=== PATIENT | female | born 1985 | race Caucasian/White ===

== ENCOUNTER 2018-12-06 19:30 | Emergency (ER) | payer OTHER, SELFPAY ==
[2018-12-06] MEDS ORDERED: NA CHLORIDE 0.9% 2,000 ML ONE (20:51)
[2018-12-06] MEDS ORDERED: NA CHLORIDE 0.9% 100 ML IV ONE (20:51)
[2018-12-06] MEDS ORDERED: AMPICILLIN/SULBACT 1.5GM VIAL ONE (20:51)
[2018-12-06 21:16] LABS: Absolute Monocytes 1.1 K/uL (0.1-1.3); Absolute Neutrophil 11.7 K/uL (1.8-8.0); Basophils % 0.2 % (0-1.3); Eosinophils % 2.5 % (0-4.4); Hematocrit 41.7 % (36.0-45.0); Lymphocytes % 7.2 % (15.3-44.8); MPV 8.2 fL (7.6-11.3); Monocytes % 7.6 % (3.3-12.3)
[2018-12-06 21:29] LABS: ALT/SGPT 17 U/L (12-78); AST/SGOT 19 U/L (15-37); Albumin 3.4 g/dL (3.4-5.0); Alkaline Phosphatase 95 U/L (45-117); BUN Blood Urea Nitrogen 12 mg/dL (7-18); Bicarbonate 23 mmol/L (21-32); Bilirubin Direct < 0.1 mg/dL (0-0.2); Bilirubin Total 0.3 mg/dL (0.2-1.0); Glucose Level 100 mg/dL (74-106); Potassium 3.8 mmol/L (3.5-5.1); Sodium Level 138 mmol/L (136-145)
[2018-12-06] MEDS ORDERED: MORPHINE 4 MG/ML SYR ONE ×2 (21:36→22:56)
--- NOTE | 2018-12-06 22:05 | RAD REPORT ---
EXAM DESCRIPTION: RAD - Chest Single View - 12/06/2018 9:27 pm CLINICAL HISTORY: dental abscess with trismus Chest pain. COMPARISON: No comparisons FINDINGS: Portable technique limits examination quality. The lungs are grossly clear. The heart is normal in size. No displaced fractures. IMPRESSION: No acute intrathoracic process suspected.
[2018-12-06] MEDS ORDERED: NA CHLORIDE 0.9% 1,000 ML ONE (22:56)
--- NOTE | 2018-12-06 23:24 | EDPHYS ---
Physician Documentation [facility] Name: Doris Langley Age: 33 yrs Sex: Female : 1985 Arrival Date: 12/06/2018 Time: 19:34 Bed 30 Private MD: ED Physician Drake Wayne HPI: 12/06 21:02 This 33 yrs old Female presents to ER via Ambulatory with complaints of snw Abscess, Toothache. 21:02 the patient presents with a swollen area of the right submandibular area. Description: snw erythematous, swollen. Onset: The symptoms/episode began/occurred gradually, and became worse yesterday. Associated signs and symptoms: The patient has no apparent associated signs or symptoms. Modifying factors: the symptoms are alleviated by nothing. Severity of symptoms: At their worst the symptoms were moderate, severe. The patient has not experienced similar symptoms in the past. It is unknown whether or not the patient has recently seen a physician. toothache x several weeks, became red and swollen yesterday. + trismus. 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 - Social history:: Smoking status: Patient uses tobacco products. - Ebola Screening: : No symptoms or risks identified at this time. ROS: 20:59 Constitutional: Negative for fever, chills, and weight loss, Eyes: Negative for injury, snw pain, redness, and discharge, Neck: Negative for injury, pain, and swelling, Cardiovascular: Negative for chest pain, palpitations, and edema, Respiratory: Negative for shortness of breath, cough, wheezing, and pleuritic chest pain, Abdomen/GI: Negative for abdominal pain, nausea, vomiting, diarrhea, and constipation, Back: Negative for injury and pain, : Negative for injury, bleeding, discharge, and swelling, MS/Extremity: Negative for injury and deformity, Skin: Negative for injury, rash, and discoloration, Neuro: Negative for headache, weakness, numbness, tingling, and seizure. 20:59 ENT: Positive for dental pain, Teeth pain Exam: 20:56 Constitutional: This is a well developed, well nourished patient who is awake, alert, snw and in no acute distress. Head/Face: Normocephalic, atraumatic. Eyes: Pupils equal round and reactive to light, extra-ocular motions intact. Lids and lashes normal. Conjunctiva and sclera are non-icteric and not injected. Cornea within normal limits. Periorbital areas with no swelling, redness, or edema. ENT: Nares patent. No nasal discharge, no septal abnormalities noted. Tympanic membranes are normal and external auditory canals are clear. Oropharynx not assessed due to trismus. Pt with erythematous area to right submandibular area with edema. Mucous membranes moist. Neck: Trachea midline, no thyromegaly or masses palpated, and no cervical lymphadenopathy. Supple, full range of motion without nuchal rigidity, or vertebral point tenderness. No Meningismus. Chest/axilla: Normal chest wall appearance and motion. Nontender with no deformity. No lesions are appreciated. Cardiovascular: Regular rate and rhythm with a normal S1 and S2. No gallops, murmurs, or rubs. Normal PMI, no JVD. No pulse deficits. Respiratory: Lungs have equal breath sounds bilaterally, clear to auscultation and percussion. No rales, rhonchi or wheezes noted. No increased work of breathing, no retractions or nasal flaring. Abdomen/GI: Soft, non-tender, with normal bowel sounds. No distension or tympany. No guarding or rebound. No evidence of tenderness throughout. Back: No spinal tenderness. No costovertebral tenderness. Full range of motion. MS/ Extremity: Pulses equal, no cyanosis. Neurovascular intact. Full, normal range of motion. Neuro: Awake and alert, GCS 15, oriented to person, place, time, and situation. Cranial nerves II-XII grossly intact. Motor strength 5/5 in all extremities. Sensory grossly intact. Cerebellar exam normal. Normal gait. Psych: Awake, alert, with orientation to person, place and time. Behavior, mood, and affect are within normal limits. 20:56 Skin: Appearance: normal except for affected area, cellulitis, that is moderate, well demarcated, on the submental area and right submandibular area. Vital Signs: 19:56 BP 107 / 73; Pulse 91; Resp 18; Temp 98.7(A); Pulse Ox 100% on R/A; Weight 77.11 kg; tl2 Height 5 ft. 3 in. (160.02 cm); Pain 9/10; 22:48 BP 118 / 80; Pulse 79; Resp 18; Pulse Ox 100% on R/A; Pain 7/10; mg2 23:46 BP 113 / 78; Pulse 70; Resp 18; Pulse Ox 99% on R/A; Pain 3/10; mg2 12/07 00:53 BP 118 / 80; Pulse 79; Resp 18; Pulse Ox 98% on R/A; Pain 4/10; mg2 02:08 BP 115 / 79; Pulse 80; Resp 18; Pulse Ox 97% on R/A; tl2 12/06 19:56 Body Mass Index 30.11 (77.11 kg, 160.02 cm) tl2 MDM: 12/06 20:19 Patient medically screened. snw 22:39 Data reviewed: vital signs, nurses notes. Data interpreted: Pulse oximetry: on room air snw is 100 %. Interpretation: normal. Counseling: I had a detailed discussion with the patient and/or guardian regarding: the historical points, exam findings, and any diagnostic results supporting the discharge/admit diagnosis, lab results, radiology results. Physician consultation: Leonora Ortiz MD was called at 22:40, was contacted at 22:40, regarding consult, patient's condition, after a discussion of the case, a recommendation for transfer for higher level of care is made, for OFM. Transition of care: After a detail discussion of the patient's case, care is transferred to Drake Wayne MD. 23:23 ED course: Accepted for transfer to [facility] for oral surgery.. rn 23:23 ED course: COntacted Dr. Ortiz, she states ct shows more odontogenic, and recommends multimedia journalist for OMFS. . 12/06 20:15 Order name: Sed Rate; Complete Time: 21:47 snw 12/06 20:15 Order name: Basic Metabolic Panel; Complete Time: 21:35 snw 12/06 20:15 Order name: Blood Culture Adult (2) snw 12/06 20:15 Order name: CBC with Diff; Complete Time: 21:47 snw 12/06 20:15 Order name: Lactate; Complete Time: 21:26 snw 12/06 20:15 Order name: LFT's; Complete Time: 21:35 snw 12/06 20:15 Order name: Procalcitonin; Complete Time: 21:57 snw 12/06 20:15 Order name: Chest Single View XRAY; Complete Time: 22:18 snw 12/06 21:57 Order name: Soft Tissue Neck W/Contr; Complete Time: 16:05 EDMS 12/06 22:43 Order name: Urine Dipstick--Ancillary (enter results); Complete Time: 16:05 mw2 12/06 22:43 Order name: Urine --Ancillary (enter results); Complete Time: 16:05 mw2 12/06 20:15 Order name: Accucheck; Complete Time: 21:14 snw 12/06 20:15 Order name: Cardiac monitoring; Complete Time: 20:58 snw 12/06 20:15 Order name: EKG - Nurse/Tech; Complete Time: 21:14 snw 12/06 20:15 Order name: IV Saline Lock - Large Bore; Complete Time: 20:58 snw 12/06 20:15 Order name: Labs collected and sent; Complete Time: 20:58 snw 12/06 20:15 Order name: O2 Per Protocol; Complete Time: 20:58 snw 12/06 20:15 Order name: O2 Sat Monitoring; Complete Time: 20:59 snw 12/06 20:15 Order name: Urine Dipstick-Ancillary (obtain specimen); Complete Time: 22:22 snw 12/06 22:41 Order name: NPO; Complete Time: 22:41 snw Administered Medications: 20:57 Drug: Unasyn 3 grams Route: IVPB; Infused Over: 30 mins; Site: right antecubital; mg2 12/07 00:12 Follow up: Response: No adverse reaction; IV Status: Completed infusion mg2 12/06 20:58 Drug: NS 0.9% (30 ml/kg) 30 ml/kg Route: IV; Rate: bolus; Site: right antecubital; mg2 12/07 00:12 Follow up: Response: No adverse reaction; IV Status: Completed infusion mg2 12/06 21:28 Drug: morphine 4 mg Route: IVP; Site: right antecubital; mg2 12/07 00:11 Follow up: Response: No adverse reaction; Marked relief of symptoms mg2 12/06 22:48 Drug: morphine 4 mg Route: IVP; Site: right antecubital; mg2 23:30 Follow up: Response: No adverse reaction; Marked relief of symptoms mg2 12/07 00:11 Follow up: Response: No adverse reaction; Marked relief of symptoms mg2 00:30 CANCELLED (Duplicate Order): morphine 4 mg IVP once cc3 00:37 Drug: morphine 4 mg Route: IVP; Site: right antecubital; mg2 01:16 Follow up: Response: No adverse reaction; Marked relief of symptoms mg2 02:26 Drug: morphine 4 mg Route: IVP; Site: right antecubital; tl2 02:28 Follow up: Response: No adverse reaction; Medication administered at discharge. tl2 Point of Care Testing: Blood Glucose: 12/06 21:14 Blood Glucose: 97 mg/dL; mg2 Ranges: Critical Glucose Levels:Adult <50 mg/dl or >400 mg/dl <40 mg/dl or >180 mg/dl Disposition: 12/07 04:43 Co-signature as Attending Physician, Drake Wayne MD. rn Disposition: 12/06/18 23:23 Transfer ordered to [facility]. Diagnosis is Submandibular and sublingual abscess. - Reason for transfer: Higher level of care. - Accepting physician is . - Condition is Stable. - Problem is new. - Symptoms are unchanged. Signatures: Dispatcher [employer] EDOR Bee Courtney, RENTAL SALESPERSON-C RENTAL SALESPERSON-Csnw Leanna Post RN RN bb Nieto, Roman, MD MD rn Knox, Taylor, RN RN tl2 Tadeo Gonzalez RN RN mg2 Portia Sears cc3 Corrections: (The following items were deleted from the chart) 12/06 21:57 20:16 Maxillofacial W/Cont+CT.RAD.BRZ ordered. EDOR EDMS 22:07 21:57 Soft Tissue Neck W/Contr+CT.RAD.BRZ ordered. EDOR EDMS 12/07 00:30 00:30 morphine 4 mg IVP once ordered. cc3 cc3 02:28 12/06 23:23 12/06/2018 23:23 Transfer ordered to [facility]. Diagnosis is tl2 Submandibular and sublingual abscess. Reason for transfer: Higher level of care. Accepting physician is . Condition is Stable. Problem is new. Symptoms are unchanged. rn
--- NOTE | 2018-12-06 23:24 | ER ---
Nurse's Notes [facility] Name: Doris Langley Age: 33 yrs Sex: Female : 1985 Arrival Date: 12/06/2018 Time: 19:34 Bed 30 Private MD: Diagnosis: Submandibular and sublingual abscess Presentation: 12/06 19:54 Presenting complaint: Patient states: tooth abscess on right side for 3 weeks, has been tl2 swollen for one week. Unable to see dentist. Transition of care: patient was not received from another setting of care. Onset of symptoms was November 17, 2018. Risk Assessment: Do you want to hurt yourself or someone else? Patient reports no desire to harm self or others. Initial Sepsis Screen: Does the patient meet any 2 criteria? No. Patient's initial sepsis screen is negative. Does the patient have a suspected source of infection? No. Patient's initial sepsis screen is negative. Care prior to arrival: None. 19:54 Method Of Arrival: Ambulatory tl2 19:54 Acuity: MAURI 3 tl2 Triage Assessment: 19:56 EENT: Reports pain in right side of mouth. 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 - Social history:: Smoking status: Patient uses tobacco products. - Ebola Screening: : No symptoms or risks identified at this time. Screenin:16 Abuse screen: Denies threats or abuse. Denies injuries from another. Nutritional mg2 screening: No deficits noted. Tuberculosis screening: No symptoms or risk factors identified. Fall Risk IV access (20 points). Assessment: 21:15 General: Appears in no apparent distress. comfortable, Behavior is calm, cooperative. mg2 Pain: Complains of pain in neck and right submandibular area Pain does not radiate. Pain currently is 7 out of 10 on a pain scale. Quality of pain is described as aching, Pain began gradually, 2 weeks ago Is intermittent. Neuro: Level of Consciousness is awake, alert, obeys commands, Oriented to person, place, time, situation. Cardiovascular: Capillary refill < 3 seconds Patient's skin is warm and dry. Respiratory: Airway is patent Respiratory effort is even, unlabored, Respiratory pattern is regular, symmetrical. GI: No signs and/or symptoms were reported involving the gastrointestinal system. : No signs and/or symptoms were reported regarding the genitourinary system. EENT: tooth abscess. Derm: Skin is clammy, Skin is pink, warm \T\ dry. normal. Musculoskeletal: Circulation, motion, and sensation intact. Capillary refill < 3 seconds. 12/07 00:09 Reassessment: report called to DAHLIA Ralph of [facility]. mg2 00:50 Reassessment: pain addressed. mg2 02:26 Reassessment: Patient appears in no apparent distress at this time. Patient and/or tl2 family updated on plan of care and expected duration. Pain level reassessed. Patient is alert, oriented x 3, equal unlabored respirations, skin warm/dry/pink. pt stable on transfer. Vital Signs: 12/06 19:56 BP 107 / 73; Pulse 91; Resp 18; Temp 98.7(A); Pulse Ox 100% on R/A; Weight 77.11 kg; tl2 Height 5 ft. 3 in. (160.02 cm); Pain 9/10; 22:48 BP 118 / 80; Pulse 79; Resp 18; Pulse Ox 100% on R/A; Pain 7/10; mg2 23:46 BP 113 / 78; Pulse 70; Resp 18; Pulse Ox 99% on R/A; Pain 3/10; mg2 12/07 00:53 BP 118 / 80; Pulse 79; Resp 18; Pulse Ox 98% on R/A; Pain 4/10; mg2 02:08 BP 115 / 79; Pulse 80; Resp 18; Pulse Ox 97% on R/A; tl2 12/06 19:56 Body Mass Index 30.11 (77.11 kg, 160.02 cm) tl2 ED Course: 12/06 19:34 Patient arrived in ED. am2 19:38 Bee Court[facility]-C [facility]. snw 19:38 Drake Wayne MD is Attending Physician. snw 19:45 Tadeo Gonzalez RN is Primary Nurse. mg2 19:56 Triage completed. tl2 19:56 Arm band placed on right wrist. tl2 19:57 Patient has correct armband on for positive identification. Bed in low position. Call tl2 light in reach. Side rails up X 1. 20:24 Radiology exam delayed due to lab results not completed at this time. (BUN/Creatinine). ml 21:02 Radiology exam delayed due to lab results not completed at this time. (BUN/Creatinine). nj 21:12 Radiology exam delayed due to lab results not completed at this time. (BUN/Creatinine). ls3 21:16 No provider procedures requiring assistance completed. Inserted saline lock: 20 gauge mg2 in right antecubital area, using aseptic technique. Blood collected. 21:26 Chest Single View XRAY In Process Unspecified. EDMS 22:01 CT completed. Patient tolerated procedure well. Patient moved back from CT. vm2 22:07 Soft Tissue Neck W/Contr In Process Unspecified. EDMS 12/07 00:09 Patient transferred, IV remains in place. mg2 Administered Medications: 12/06 20:57 Drug: Unasyn 3 grams Route: IVPB; Infused Over: 30 mins; Site: right antecubital; mg2 12/07 00:12 Follow up: Response: No adverse reaction; IV Status: Completed infusion mg2 12/06 20:58 Drug: NS 0.9% (30 ml/kg) 30 ml/kg Route: IV; Rate: bolus; Site: right antecubital; mg2 12/07 00:12 Follow up: Response: No adverse reaction; IV Status: Completed infusion mg2 12/06 21:28 Drug: morphine 4 mg Route: IVP; Site: right antecubital; mg2 12/07 00:11 Follow up: Response: No adverse reaction; Marked relief of symptoms mg2 12/06 22:48 Drug: morphine 4 mg Route: IVP; Site: right antecubital; mg2 23:30 Follow up: Response: No adverse reaction; Marked relief of symptoms mg2 12/07 00:11 Follow up: Response: No adverse reaction; Marked relief of symptoms mg2 00:30 CANCELLED (Duplicate Order): morphine 4 mg IVP once cc3 00:37 Drug: morphine 4 mg Route: IVP; Site: right antecubital; mg2 01:16 Follow up: Response: No adverse reaction; Marked relief of symptoms mg2 02:26 Drug: morphine 4 mg Route: IVP; Site: right antecubital; tl2 02:28 Follow up: Response: No adverse reaction; Medication administered at discharge. tl2 Point of Care Testing: Blood Glucose: 12/06 21:14 Blood Glucose: 97 mg/dL; mg2 Ranges: Outcome: 23:23 ER care complete, transfer ordered by . dahlia 12/07 02:26 Transferred by ground EMS Transfer form completed. tl2 Condition: stable Discharge instructions given to patient. 02:28 Patient left the ED. tl2 Signatures: Dispatcher [employer] EDBee Villalba, ENGINEERING TECHNICAL ANALYST-C ENGINEERING TECHNICAL ANALYST-CsnMirian Myrick Roman, MD MD rn Knox, Taylor, RN RN tl2 Miguel Ángel Garza Amanda am2 Destiny Barrera2 Tadeo Gonzalez RN RN mg2 Kaushik Rodgers 3 Portia Sears cc3
[2018-12-06 23:44] LABS: Urine Blood 2+ (NEG); Urine Glucose NEGATIVE (NEG); Urine Protein TRACE (NEG); Urine pH 5.5 (5.0-7.0)
[2018-12-07] MEDS ORDERED: MORPHINE 4 MG/ML SYR ONE ×2 (00:45→02:25)
--- NOTE | 2018-12-07 10:45 | EKG ---
Test Date: 2018-12-06 Test Time: 21:09:50 [place] Hand: MG MEASUREMENT RESULTS: Intervals: Rate: 75 VA: 134 QRSD: 96 QT: 412 QTc: 460 Leslie: P: 75 VA: 134 QRS: 37 T: 57 INTERPRETIVE STATEMENTS: Normal sinus rhythm Incomplete right bundle branch block Borderline ECG No previous ECG available for comparison Electronically Signed On 12-07-18 10:43:33 CDT by Elia Lewis
--- NOTE | 2018-12-07 12:43 | RAD REPORT ---
EXAM DESCRIPTION: [id number] - Soft Tissue Neck W/Contr Sex: Female. : 1985. TECHNIQUE: Axial scans were performed through the neck including multiplanar computer reformations. With intravenous contrast. Total Dose Length Product: 238. This exam was performed according to our d epartmental dose-optimization program, which includes automated exposure control, adjustment of the m A and/or kV according to patient size and/or use of iterative reconstruction technique. CLINICAL HISTORY: Trismus;Pain. FINDINGS: Mucosal structures: Nasopharynx: Normal. Oropharynx: There is slight mass effect on the oropharyngeal airway on the right side. Larynx: Normal. Subglottic: Normal. Valleculae and pyriform sinuses: There is slight mass effect on the right vallecula. Extramucosal structures: Manager Pet spaces: There is edema in the right batching operator space involving the masseter and pterygoid muscles that look hypoattenuating. Parapharyngeal spaces: Effacement of the right parapharyngeal spac e. Vascular spaces: Normal. Major salivary glands: The right submandibular gland is enlarged compared to the left side and measures 4.0 x 3.1 cm compared to 2.6 x 2.1 cm on the left. Thyroid gland: Norm al. Orbits: Normal. Paranasal sinuses: Aerated. Maxillary: Bilateral tooth destruction. This is worse on the right. Mandible: There is a cavity in the right second molar. There is periapical lucency from infection. Th ere appears to be erosion and dehiscence of the underlying buccal cortex. There is a rim-enhancing ab scess that has formed in the right submandibular space that measures approximately 4 cm anterior post erior, 2.3 cm medial lateral and 2.8 cm superior-inferior. There is surrounding infiltration and subc utaneous edema and thickening of the investing fascia down into the neck. The abscess extends into th e sublingual space where there is a small dot of gas. There are multiple reactive lymph nodes IMPRESSION: 1. Extensive dental disease. 2. Right mandibular second molar cavity, periapical abscess. With local dehiscence of the mandibular buccal cortex. And subadjacent abscess in the right submandibular and sublingual spaces-4 x 2.3 x 2.8 cm. Edema in the right batching operator space and swollen right submandibular gland with mild mass effect on the parapharyngeal space and oropharynx. Surrounding phlegmonous thickening and reactive adenopath y. Discussed findings with Dr. Wayne at 1024 p.m. Electronically signed by: Brendon Gutierrez MD 12/06/2018 10:31 PM CDT Due to temporary technical issues with the PACS/Fluency reporting system, reports are being signed by the in house radiologist as a courtesy to ensure prompt reporting. The interpreting radiologist is f ully responsible for the content of the report.
== END 2018-12-07 02:28 | disposition short-term general hospital (02) ==
LOC: ER 19:30
DX: K12.2 Cellulitis and abscess of mouth (principal); Z88.1 Allergy status to other antibiotic agents
CPT/HCPCS: 36415; 70491; 71045; 80048; 80076; 81003; 81025; 82962; 83605; 84145; 85025; 85652; 87040; 93005; 96365; 96366; 96375; 99285; J0295; J7030; Q9967

== ENCOUNTER 2019-04-04 02:37 | Emergency (ER) | payer SELFPAY ==
--- OUTSIDE RECORDS SUMMARY | 2019-04-04 02:39 | XMS REPORT ---
:1985 [facility] Address [address] [place] [address] Dr. Gil [address] [place] [id number] Care Team Providers Name Role Phone Unavailable Unavailable Unavailable Problems This patient has no known problems. Allergies, Adverse Reactions, Alerts This patient has no known allergies or adverse reactions. Medications This patient has no known medications.
[2019-04-04] MEDS ORDERED: HYDROCODONE/APAP 7.5/325 MG TAB ONE (03:36)
[2019-04-04] MEDS ORDERED: IBUPROFEN 400 MG TAB ONE (03:44)
[2019-04-04] MEDS ORDERED: IBUPROFEN 200 MG TAB PO ONE (03:44)
[2019-04-04] MEDS ORDERED: NA CHLORIDE 0.9% 0 ML IV ONE (04:07)
[2019-04-04] MEDS ORDERED: CEFAZOLIN SODIUM 1 GM/VIAL ONE (04:07)
[2019-04-04] MEDS ORDERED: NA CHLORIDE 0.9% 1,000 ML ONE (04:07)
[2019-04-04] MEDS ORDERED: TETANUS & DIPHTHERIA TOX,ADULT 0.5 ML VIAL ONE (04:07)
[2019-04-04] MEDS ORDERED: NA CHLORIDE 0.9% 50 ML IV ONE (04:15)
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
[2019-04-04] MEDS ORDERED: MORPHINE 4 MG/ML SYR ONE (05:15)
[2019-04-04 06:41] LABS: Urine Blood TRACE (NEG); Urine Glucose NEGATIVE (NEG); Urine Protein NEGATIVE (NEG)
[2019-04-04] MEDS ORDERED: FENTANYL CITR 100 MCG/2 ML ONE (06:49)
--- NOTE | 2019-04-04 08:21 | RAD REPORT ---
EXAM DESCRIPTION: RAD - Ankle Left 3 View -04/04/2019 3:39 am CLINICAL HISTORY: Left ankle pain status post injury FINDINGS: Markedly displaced fracture involves the calcaneus. Fracture fragments are by up to 1 centimeter. No dislocation
--- NOTE | 2019-04-04 08:22 | RAD REPORT ---
EXAM DESCRIPTION: RAD - Os Calcis (Calcaneus) Heel - 04/04/2019 3:39 am CLINICAL HISTORY: Left foot pain FINDINGS: Markedly displaced fracture involves the calcaneus. Fracture fragments are by up to 1 centimeter. No dislocation
== END 2019-04-04 06:48 | disposition short-term general hospital (02) ==
LOC: ER 02:37
PROC: 2W3RX1Z Immobilization of Left Lower Leg using Splint (ICD-10-PCS; principal; 2019-04-04)
DX: S92.002A Unspecified fracture of left calcaneus, initial encounter for closed fracture (principal); S91.312A Laceration without foreign body, left foot, initial encounter; W17.89XA Other fall from one level to another, initial encounter; Z88.1 Allergy status to other antibiotic agents; Z23 Encounter for immunization
CPT/HCPCS: 73650; 81003; 81025; 87070; 87205; 90471; 90714; 96361; 96365; 96375; 99285; J0690; J3010; J7030

== ENCOUNTER 2022-06-03 13:36 | Emergency (ER) | payer SELFPAY ==
--- OUTSIDE RECORDS SUMMARY | 2022-06-03 13:40 | XMS REPORT | Continuity of Care Document ---
:1985 Author Organization [facility] t Address [address] [place] [address] Care Team Providers Name Role Phone No, Pcp [facility] Primary Care Physician Unavailable Doctor Unassigned, [place] Attending Clinician Unavailable SAMANTHA GILLESPIE Attending Clinician Unavailable SAMANTHA GILLESPIE Admitting Clinician Unavailable Payers Payer Name Policy Type Policy Number Effective Date Expiration Date S ource Problems Condition Condition Condition Status Onset Resolution Last Treating Co mments Source Name Details Category Date Date Treatment Clinician Date Fracture Fract[facility] Open Open Disease [facility] fracture fracture 00:00: [facility] of 00 Center tuberosity tuberosity of left of left calcaneus calcaneus [place] Sub[place]u Disease Active U nivers lar lar 3-21 ity of abscess abscess 00:00: [place] [facility] Allergies, Adverse Reactions, Alerts Allergy Allergy Status Severity Reaction(s) Onset Inactive Treating Comm ents Source Name Type Date Date Clinician Clindamy Propensi Active [facility] adverse 00:00: Medical reaction 00 Center s Clindamy Propensi Active Hives 2015-09 Univer s diya ty to 1-13 ity of adverse 00:00: [place] reaction 00 Medical s Branch Social History Social Habit Start Date Stop Date Quantity Comments Source History of tobacco 1998-09-19 Cigarette Smoker [facility] of use 00:00:00 [facility] [place] [facility] Tobacco use and 2019-04-04 2019-04-04 Current user MAO [place] exposure 00:00:00 00:00:00 [facility] Cigarettes smoked 2018-12-08 2018-12-08 Univers ity of current (pack per 00:00:00 00:00:00 [facility] ) - Reported Branch Alcohol intake 2018-12-08 2018-12-08 [facility] 00:00:00 00:00:00 [facility] [place] [facility] Sex Ass[birth year] At [birth year] MAO Catess 00:00:00 00:00:00 [facility] Smoking Status Start Date Stop Date Source Current every day smoker 2018-12-08 00:00:00 [facility] [place] [facility] Medications Ordered Filled Start Stop Current Ordering Indication Dosage Frequency Signature Comments Components Source Medication Medication Date Date Medication? Clinician (SIG) Name Name chlorhexidi Yes [id number] 15mL Swish and Univers ne 0.12 % 3-22 spit out ity of mouthwash 00:00: 15 mL 2 [place] 00 (two) Medical times Branch daily. HYDROcodone Yes [id number] 1{tbl} Take 1 Univers -acetaminop 3-22 tablet by ity of hen (NORCO) 00:00: mouth [place] 5-325 mg 00 every 6 Medical tablet (six) Branch hours as needed for Pain (scale 4-6). ibuprofen Yes [id number] 600mg Take 1 U nivers 600 mg 3-22 tablet by ity of tablet 00:00: mouth [place] 00 every 6 Medical (six) Branch hours as needed for Pain (scale 1-3) or Pain (scale 4-6). traMADOL 2015-09 Yes 50mg Take 1 Univers (ULTRAM) 50 2-02 tablet by ity of mg tablet 00:00: mouth [place] 00 every 6 Medical (six) Branch hours as needed for Pain (scale 4-6). Ervin Almazan PA-C / Denzel Reddy MD LIYAH# [id number] DPS# [id number] Lic.# [id number] NPI# [id number] pentazocine 2015-09 Yes 1{tbl} Take 1 Un mckenzie -naloxone 1-13 tablet by ity o f (DEVAN HENSON) 00:00: mouth [place] 50-0.5 mg 00 every 4 Medical tablet (four) Branch hours as needed for Pain for up to 20 doses. Procedures Procedure Date / Time Performing Clinician Source Performed AUTHORIZATION FOR 2019-11-21 06:01:00 Doctor Unassigned, No Univ [facility] RELEASE OF PHI Name Medical Branch Encounters Start End Encounter Admission Attending Care Care Encounter Source Date/Time Date/Time Type Type Clinicians Facility Department ID 2019-11-21 2019-11-21 Orders Doctor CHERELLE [id number] Univers 00:00:00 00:00:00 Only Unassigned, TIM [id number] ity of [place] [facility] [id number] Nolan as [phone] [facility] 009 Branch Results Test Description Test Time Test Comments Results Result Sour e Comments FL, BRICK BAKER IN 2019-04-06 Reason for PROCEDURE PERFORMED IN OR/30 MINUTE 14:01:00 exam:->Left O.R. - PLEASE REFER TO INCREMENTS open tongue THE INTRAOPERATIVE type calcaneus REPORT. Electronically fracture signed by: ELECTRONICALLYVER BY RADIOLOGY on 04/06/2019 02:01 PM BASIC METABOLIC PANEL 2019-04-06 10:46:00 Test Item Value Reference Range Interpretation Comme nts SODIUM (BEAKER) (test code 138 meq/L 136-145 = 381) POTASSIUM (BEAKER) (test 3.4 meq/L 3.5-5.1 L code = 379) CHLORIDE (BEAKER) (test 108 meq/L 98-107 H code = 382) CO2 (BEAKER) (test code = 23 meq/L 22-29 355) BLOOD UREA NITROGEN 7 mg/dL 7-21 (BEAKER) (test code = 354) CREATININE (BEAKER) (test 0.72 mg/dL 0.57-1.25 code = 358) GLUCOSE RANDOM (BEAKER) 108 mg/dL 70-105 H (test code = 652) CALCIUM (BEAKER) (test code 8.4 mg/dL 8.4-10.2 = 697) EGFR (BEAKER) (test code = 92 mL/min/1.73 sq m ESTIMATED GFR IS NOT 1092) ACCURATE CRE ATININE CLEARANCE IN DE EDICTING GLOMERULAR FILT RATION RATE. ESTIMATED GFR IS NOT APPLICABLE FOR DIALYSIS PATIENTS. CBC W/PLT COUNT & AUTO [id number] 10:26:00 Test Item Value Reference Range Interpretation Comments WHITE BLOOD CELL COUNT (BEAKER) 7.3 K/ L 3.5-10.5 (test code = 775) RED BLOOD CELL COUNT (BEAKER) 3.51 M/ L 3.93-5.22 L (test code = 761) HEMOGLOBIN (BEAKER) (test code = 10.2 GM/DL 11.2-15.7 L 410) HEMATOCRIT (BEAKER) (test code = 31.9 % 34.1-44.9 L 411) MEAN CORPUSCULAR VOLUME (BEAKER) 90.9 fL 79.4-94.8 (test code = 753) MEAN CORPUSCULAR HEMOGLOBIN 29.1 pg 25.6-32.2 (BEAKER) (test code = 751) MEAN CORPUSCULAR HEMOGLOBIN CONC 32.0 GM/DL 32.2-35.5 L (BEAKER) (test code = 752) RED CELL DISTRIBUTION WIDTH 15.0 % 11.7-14.4 H (BEAKER) (test code = 412) PLATELET COUNT (BEAKER) (test 242 K/CU MM 150-450 code = 756) MEAN PLATELET VOLUME (BEAKER) 9.9 fL 9.4-12.3 (test code = 754) NUCLEATED RED BLOOD CELLS 0 /100 WBC 0-0 (BEAKER) (test code = 413) NEUTROPHILS RELATIVE PERCENT 71 % (BEAKER) (test code = 429) LYMPHOCYTES RELATIVE PERCENT 15 % (BEAKER) (test code = 430) MONOCYTES RELATIVE PERCENT 11 % (BEAKER) (test code = 431) EOSINOPHILS RELATIVE PERCENT 3 % (BEAKER) (test code = 432) BASOPHILS RELATIVE PERCENT 1 % (BEAKER) (test code = 437) NEUTROPHILS ABSOLUTE COUNT 5.17 K/ L 1.56-6.13 (BEAKER) (test code = 670) LYMPHOCYTES ABSOLUTE COUNT 1.06 K/ L 1.18-3.74 L (BEAKER) (test code = 414) MONOCYTES ABSOLUTE COUNT (BEAKER) 0.80 K/ L 0.24-0.36 H (test code = 415) EOSINOPHILS ABSOLUTE COUNT 0.25 K/ L 0.04-0.36 (BEAKER) (test code = 416) BASOPHILS ABSOLUTE COUNT (BEAKER) 0.04 K/ L 0.01-0.08 (test code = 417) IMMATURE GRANULOCYTES-RELATIVE 0 % 0-1 PERCENT (BEAKER) (test code = 2801) COMPREHENSIVE METABOLIC [id number] 07:45:00 Test Item Value Reference Range Interpretation Comments TOTAL PROTEIN 5.9 gm/dL 6.0-8.3 L (BEAKER) (test code = 770) ALBUMIN (BEAKER) 3.4 g/dL 3.5-5.0 L (test code = 1145) ALKALINE PHOSPHATASE 56 U/L 40-150 (BEAKER) (test code = 346) BILIRUBIN TOTAL 0.5 mg/dL 0.2-1.2 (BEAKER) (test code = 377) SODIUM (BEAKER) (test 136 meq/L 136-145 code = 381) POTASSIUM (BEAKER) 3.7 meq/L 3.5-5.1 (test code = 379) CHLORIDE (BEAKER) 108 meq/L 98-107 H (test code = 382) CO2 (BEAKER) (test 23 meq/L 22-29 code = 355) BLOOD UREA NITROGEN 7 mg/dL 7-21 (BEAKER) (test code = 354) CREATININE (BEAKER) 0.72 mg/dL 0.57-1.25 (test code = 358) GLUCOSE RANDOM 77 mg/dL 70-105 (BEAKER) (test code = 652) CALCIUM (BEAKER) 8.1 mg/dL 8.4-10.2 L (test code = 697) AST (SGOT) (BEAKER) 18 U/L 5-34 (test code = 353) ALT (SGPT) (BEAKER) 11 U/L 6-55 (test code = 347) EGFR (BEAKER) (test 92 mL/min/1.73 ESTIMA YOVANY GFR IS code = 1092) sq m NOT ACCURATE CREATININE CLEARANCE IN PREDICTING GLOMERULAR FILTRATION RATE . ESTIMATED GFR I S NOT APPLICABLE FOR DIALYSIS PATIEN TS. BASIC METABOLIC [id number] 07:45:00 Test Item Value Reference Range Interpretation Comments SODIUM (BEAKER) 136 meq/L 136-145 (test code = 381) POTASSIUM (BEAKER) 3.7 meq/L 3.5-5.1 (test code = 379) CHLORIDE (BEAKER) 108 meq/L 98-107 H (test code = 382) CO2 (BEAKER) (test 23 meq/L 22-29 code = 355) BLOOD UREA NITROGEN 7 mg/dL 7-21 (BEAKER) (test code = 354) CREATININE (BEAKER) 0.72 mg/dL 0.57-1.25 (test code = 358) GLUCOSE RANDOM 77 mg/dL 70-105 (BEAKER) (test code = 652) CALCIUM (BEAKER) 8.1 mg/dL 8.4-10.2 L (test code = 697) EGFR (BEAKER) (test 92 mL/min/1.73 ESTIMA YOVANY GFR IS code = 1092) sq m NOT ACCURATE CREATININE CLEARANCE IN PREDICTING GLOMERULAR FILTRATION RATE . ESTIMATED GFR I S NOT APPLICABLE FOR DIALYSIS PATIEN TS. CBC W/PLT COUNT & AUTO [id number] 05:27:00 Test Item Value Reference Range Interpretation Comments WHITE BLOOD CELL COUNT (BEAKER) 8.7 K/ L 3.5-10.5 (test code = 775) RED BLOOD CELL COUNT (BEAKER) 3.75 M/ L 3.93-5.22 L (test code = 761) HEMOGLOBIN (BEAKER) (test code = 10.6 GM/DL 11.2-15.7 L 410) HEMATOCRIT (BEAKER) (test code = 33.5 % 34.1-44.9 L 411) MEAN CORPUSCULAR VOLUME (BEAKER) 89.3 fL 79.4-94.8 (test code = 753) MEAN CORPUSCULAR HEMOGLOBIN 28.3 pg 25.6-32.2 (BEAKER) (test code = 751) MEAN CORPUSCULAR HEMOGLOBIN CONC 31.6 GM/DL 32.2-35.5 L (BEAKER) (test code = 752) RED CELL DISTRIBUTION WIDTH 15.1 % 11.7-14.4 H (BEAKER) (test code = 412) PLATELET COUNT (BEAKER) (test 281 K/CU MM 150-450 code = 756) MEAN PLATELET VOLUME (BEAKER) 10.2 fL 9.4-12.3 (test code = 754) NUCLEATED RED BLOOD CELLS 0 /100 WBC 0-0 (BEAKER) (test code = 413) NEUTROPHILS RELATIVE PERCENT 64 % (BEAKER) (test code = 429) LYMPHOCYTES RELATIVE PERCENT 24 % (BEAKER) (test code = 430) MONOCYTES RELATIVE PERCENT 9 % (BEAKER) (test code = 431) EOSINOPHILS RELATIVE PERCENT 2 % (BEAKER) (test code = 432) BASOPHILS RELATIVE PERCENT 1 % (BEAKER) (test code = 437) NEUTROPHILS ABSOLUTE COUNT 5.58 K/ L 1.56-6.13 (BEAKER) (test code = 670) LYMPHOCYTES ABSOLUTE COUNT 2.08 K/ L 1.18-3.74 (BEAKER) (test code = 414) MONOCYTES ABSOLUTE COUNT (BEAKER) 0.82 K/ L 0.24-0.36 H (test code = 415) EOSINOPHILS ABSOLUTE COUNT 0.15 K/ L 0.04-0.36 (BEAKER) (test code = 416) BASOPHILS ABSOLUTE COUNT (BEAKER) 0.04 K/ L 0.01-0.08 (test code = 417) IMMATURE GRANULOCYTES-RELATIVE 0 % 0-1 PERCENT (BEAKER) (test code = 2801) CBC W/PLT COUNT & AUTO [id number] 14:02:00 Test Item Value Reference Range Interpretation Comments WHITE BLOOD CELL COUNT (BEAKER) 8.3 K/ L 3.5-10.5 (test code = 775) RED BLOOD CELL COUNT (BEAKER) 4.12 M/ L 3.93-5.22 (test code = 761) HEMOGLOBIN (BEAKER) (test code = 12.0 GM/DL 11.2-15.7 410) HEMATOCRIT (BEAKER) (test code = 36.4 % 34.1-44.9 411) MEAN CORPUSCULAR VOLUME (BEAKER) 88.3 fL 79.4-94.8 (test code = 753) MEAN CORPUSCULAR HEMOGLOBIN 29.1 pg 25.6-32.2 (BEAKER) (test code = 751) MEAN CORPUSCULAR HEMOGLOBIN CONC 33.0 GM/DL 32.2-35.5 (BEAKER) (test code = 752) RED CELL DISTRIBUTION WIDTH 15.0 % 11.7-14.4 H (BEAKER) (test code = 412) PLATELET COUNT (BEAKER) (test 319 K/CU MM 150-450 code = 756) MEAN PLATELET VOLUME (BEAKER) 9.8 fL 9.4-12.3 (test code = 754) NUCLEATED RED BLOOD CELLS 0 /100 WBC 0-0 (BEAKER) (test code = 413) NEUTROPHILS RELATIVE PERCENT 58 % (BEAKER) (test code = 429) LYMPHOCYTES RELATIVE PERCENT 31 % (BEAKER) (test code = 430) MONOCYTES RELATIVE PERCENT 8 % (BEAKER) (test code = 431) EOSINOPHILS RELATIVE PERCENT 1 % (BEAKER) (test code = 432) BASOPHILS RELATIVE PERCENT 1 % (BEAKER) (test code = 437) NEUTROPHILS ABSOLUTE COUNT 4.85 K/ L 1.56-6.13 (BEAKER) (test code = 670) LYMPHOCYTES ABSOLUTE COUNT 2.61 K/ L 1.18-3.74 (BEAKER) (test code = 414) MONOCYTES ABSOLUTE COUNT (BEAKER) 0.68 K/ L 0.24-0.36 H (test code = 415) EOSINOPHILS ABSOLUTE COUNT 0.11 K/ L 0.04-0.36 (BEAKER) (test code = 416) BASOPHILS ABSOLUTE COUNT (BEAKER) 0.05 K/ L 0.01-0.08 (test code = 417) IMMATURE GRANULOCYTES-RELATIVE 0 % 0-1 PERCENT (BEAKER) (test code = 2801) SCREEN, [id number] 13:10:00 Test Item Value Reference Range Interpretation Comments TEST URINE (BEAKER) (test Negative code = 583) [id number] 12:20:00 Test Item Value Reference Range Interpretation Comments PROTIME (BEAKER) (test code = 14.5 seconds 11.9-14.2 H 759) INR (BEAKER) (test code = 370) 1.2 <=5.9 PARTIAL THROMBOPLASTIN TIME 28.5 seconds 22.5-36.0 (BEAKER) (test code = 760) Effective 02/14/2019: PT Reference Range ChangeNew: 11.9-14.2 Previous: 11.7- 14.7RECOMMENDED COUMADIN/WARFARIN INR THERAPY RANGESSTANDARD DOSE: 2.0-3.0 Includes: PROPHYLAXIS for venous thrombosis, systemic embolization; TREATMENT for venous thrombosis and/or pulmonary embolus.HIGH RISK: Target INR is 2.5-3.5 for patients wiht mechanical heart valves.RAD, CHEST, 1 VIEW, NON [id number] 11:38:00Reason for exam:->pre-opShould this be performed at the bedside?->YesFINAL REPORT Chest, portable AP view History: Calcaneus fracture, preop evaluation Comparison: No comparisons available for review IMPRESSION: The cardiomediastinal silhouette and pulmonary vasculature are within normal limits. The lungs are clear without evidence of consolidationor effusion. There are no acute osseous abnormalities. Signed: Brendon Chang Verified Date/Time: 04/04/2019 11:38:54 Reading Location: [facility] Reading Room RAD, HEEL, 2 VIEWS, [id number] 11:12:00 Reason for exam:->fx assessmentShould this be performed at the bedside?->YesFINAL REPORT Left calcaneus, two views Clinical indications: Fracture COMPARISON: None FINDINGS:There is a comminuted fracture of the left calcaneus with intra-articular extension.The fracture line runs through the posterior articular surface for the talus and the tuberosity of the calcaneus. There is a questionable soft tissue defect at the posterior aspect of the calcaneus raising concern for an open fracture. CT may be needed for surgical planning. Signed: Brendon Chang Verified Date/Time: 04/04/2019 11:12:04 Reading Location: [facility] Radiology Reading Room
--- NOTE | 2022-06-03 14:56 | RAD REPORT ---
EXAM DESCRIPTION: RAD - Chest Single View - 06/03/2022 2:50 pm CLINICAL HISTORY: near syncope Chest pain. COMPARISON: Chest Single View dated 12/06/2018 FINDINGS: Portable technique limits examination quality. The lungs are grossly clear. The heart is normal in size. No displaced fractures. IMPRESSION: No acute intrathoracic process suspected.
[2022-06-03 15:27] LABS: Urine Blood 1+ (Negative); Urine Glucose Negative (Negative); Urine Protein 1+ (Negative); Urine Specific Gravity >=1.030 (1.005-1.030); Urine pH 5.5 (5.0-7.0)
[2022-06-03 15:52] LABS: Absolute Lymphocytes (CBC) 1.5 K/uL (0.7-4.9); Hematocrit 40.4 % (36.0-45.0); Lymphocytes % 21.5 % (15.3-44.8); MCV 88.5 fL (80-100); RBC Red Blood Cell Count 4.57 M/uL (3.86-4.86)
[2022-06-03 15:57] LABS: Albumin 4.2 g/dL (3.4-5.0); Bilirubin Direct 0.3 mg/dL (0-0.2); Bilirubin Total 0.9 mg/dL (0.2-1.0); Magnesium 2.5 mg/dL (1.8-2.4); Potassium 3.8 mmol/L (3.5-5.1); Protein, Total 8.2 g/dL (6.4-8.2); Troponin High Sensitivity 4.3 pg/mL (<58.9)
[2022-06-03 16:06] LABS: Urine Bacteria 20-50 /HPF (<20); Urine Mucus 2+ /HPF (None Seen); Urine RBC >50 /HPF (None Seen)
[2022-06-03] MEDS ORDERED: NA CHLORIDE 0.9% 1,000 ML ONE (16:37)
[2022-06-03] MEDS ORDERED: CEFTRIAXONE 1000 MG/VIAL ONE (17:04)
[2022-06-03 17:18] LABS: Barbiturates NEGATIVE (NEGATIVE); Benzodiazepines NEGATIVE (NEGATIVE); Cocaine NEGATIVE (NEGATIVE); METHAMPHETAM POSITIVE (NEGATIVE); Methadone NEGATIVE (NEGATIVE); Opiates NEGATIVE (NEGATIVE); Phencyclidine NEGATIVE (NEGATIVE); THC Cannibis POSITIVE (NEGATIVE)
--- NOTE | 2022-06-03 17:31 | EDPHYS ---
Physician Documentation [facility] Name: Doris Langley Age: 37 yrs Sex: Female : 1985 Arrival Date: 06/03/2022 Time: 13:42 Bed 16 Private MD: ED Physician Lawrence Stephens HPI: 06/03 14:20 This 37 yrs old Female presents to ER via EMS with complaints of Heat Exposure. cp 14:20 generalized cramping. cp 14:20 Onset: The symptoms/episode began/occurred today. Patient presents to ED by EMS with cp c/o generalized body cramps. Patient reports she was outside about 20 minutes when symptoms started. Patient denies chest pain, denies abdominal pain. 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 - Social history:: Smoking status: Patient reports the use of cigarette tobacco products, smokes one pack cigarettes per day. Patient uses alcohol, occasionally. ROS: 14:25 Constitutional: Negative for chills, fever, poor PO intake. cp 14:25 Cardiovascular: Negative for chest pain. cp 14:25 Respiratory: Negative for cough, shortness of breath, wheezing. 14:25 Abdomen/GI: Negative for vomiting, diarrhea, constipation. 14:25 Skin: Negative for rash. 14:25 Neuro: Negative for altered mental status, dizziness, headache, loss of consciousness, syncope, weakness. 14:25 All other systems are negative. Exam: 14:30 Constitutional: The patient appears in no acute distress, alert, awake, cp non-diaphoretic, non-toxic, well developed, well nourished. 14:30 Head/Face: Normocephalic, atraumatic. cp 14:30 Eyes: Periorbital structures: appear normal, Conjunctiva: normal, no exudate, no injection, Sclera: no appreciated abnormality, Lids and lashes: appear normal, bilaterally. 14:30 ENT: External ear(s): are unremarkable, Nose: is normal, Mouth: Lips: moist, Oral mucosa: pink and intact, moist, Posterior pharynx: Airway: no evidence of obstruction, patent. 14:30 Neck: ROM/movement: is normal, is supple, without pain, no range of motions limitations, no nuchal rigidity. 14:30 Chest/axilla: Inspection: normal. 14:30 Cardiovascular: Rate: normal, Rhythm: regular, Edema: is not appreciated, JVD: is not appreciated. 14:30 Respiratory: the patient does not display signs of respiratory distress, Respirations: normal, no use of accessory muscles, no retractions, labored breathing, is not present, Breath sounds: are clear throughout, no decreased breath sounds, no stridor, no wheezing. 14:30 Abdomen/GI: Inspection: abdomen appears normal, Palpation: abdomen is soft and non-tender, in all quadrants. 16:47 ECG was reviewed by the Attending Physician. cp Vital Signs: 14:12 BP 119 / 93; Pulse 85; Resp 18; Temp 98.4(TE); Pulse Ox 99% on R/A; Weight 56.7 kg (R); tw2 Height 5 ft. 3 in. (160.02 cm) (R); 16:45 BP 122 / 89; Pulse 56; Resp 16; Pulse Ox 98% ; Pain 2/10; jh6 14:12 Body Mass Index 22.14 (56.70 kg, 160.02 cm) tw2 MDM: 16:19 Patient medically screened. cp 17:30 Data reviewed: vital signs, nurses notes, lab test result(s), EKG, radiologic studies, cp plain films. 17:30 Differential Diagnosis electrolyte abnormality, arrythmia, illegal drug use. Test cp interpretation: by ED physician or midlevel provider: ECG, plain radiologic studies. Counseling: I had a detailed discussion with the patient and/or guardian regarding: the historical points, exam findings, and any diagnostic results supporting the discharge/admit diagnosis, lab results, radiology results, to return to the emergency department if symptoms worsen or persist or if there are any questions or concerns that arise at home. Response to treatment: the patient's symptoms have markedly improved after treatment, and as a result, I will discharge patient. ED course: VSS. Patient resting comfortably in exam room. Will discharge to home for continued monitoring. 06/03 14:17 Order name: Basic Metabolic Panel; Complete Time: 16:19 cp 06/03 16:20 Interpretation: Normal except: GFR 72. cp 06/03 14:17 Order name: CBC with Diff; Complete Time: 16:19 cp 06/03 16:22 Interpretation: Normal except: PLT 479. cp 06/03 14:17 Order name: LFT's; Complete Time: 16:19 cp 06/03 14:17 Order name: Magnesium; Complete Time: 16:19 cp 06/03 14:17 Order name: Troponin HS; Complete Time: 16:19 cp 06/03 14:17 Order name: CK; Complete Time: 16:19 cp 06/03 14:17 Order name: XRAY Chest (1 view); Complete Time: 16:19 cp 06/03 14:17 Order name: UDS; Complete Time: 17:22 cp 06/03 17:22 Interpretation: Normal except: METHAMPHETAMINE POSITIVE; THC POSITIVE. cp 06/03 15:26 Order name: Urine Microscopic Only; Complete Time: 16:19 ss 06/03 15:26 Order name: Urine Culture 06/03 15:27 Order name: Urine Dipstick-Ancillary; Complete Time: 16:19 EDMS 06/03 14:17 Order name: EKG; Complete Time: 14:18 cp 06/03 14:17 Order name: Cardiac monitoring; Complete Time: 16:22 cp 06/03 14:17 Order name: EKG - Nurse/Tech; Complete Time: 16:22 cp 06/03 14:17 Order name: IV Saline Lock; Complete Time: 15:20 cp 06/03 14:17 Order name: Labs collected and sent; Complete Time: 15:20 cp 06/03 14:17 Order name: O2 Per Protocol; Complete Time: 16:22 cp 06/03 14:17 Order name: O2 Sat Monitoring; Complete Time: 16:22 cp 06/03 14:17 Order name: Urine Dipstick-Ancillary (obtain specimen); Complete Time: 15:20 cp 06/03 14:17 Order name: Urine Test (obtain specimen); Complete Time: 15:20 cp EC:47 Rate is 52 beats/min. Rhythm is regular. OK interval is normal. QRS interval is normal. cp QT interval is normal. T waves are Inverted in lead aVR. Interpreted by me. Reviewed by me. Administered Medications: 17:00 Drug: NS 0.9% 1000 ml Route: IV; Rate: 1 bolus; Site: right antecubital; [facility] 17:00 Drug: Rocephin (cefTRIAXone) 1 grams Route: IV; Rate: calculated rate; Site: right [facility] antecubital; 17:40 Follow up: Response: No adverse reaction [facility] Disposition Summary: 06/03/22 17:30 Discharge Ordered Location: Home cp Problem: new cp Symptoms: have improved cp Condition: Stable cp Diagnosis - Heat exhaustion, unspecified cp - Adverse effect of amphetamines, initial encounter cp - UTI/ Urinary tract infection, site not specified cp Followup: cp - With: Private Physician - When: 1 - 2 days - Reason: Recheck today's complaints Discharge Instructions: - Discharge Summary Sheet cp - Urinary Tract Infection, Adult cp - Methamphetamines Use Disorder cp - Heat Exhaustion cp Forms: - Medication Reconciliation Form cp - Thank You Letter cp - Antibiotic Education cp - Prescription Opioid Use cp Prescriptions: - Cephalexin 500 mg Oral Capsule - take 1 capsule by ORAL route every 8 hours for 7 days; 21 capsule; Refills: 0, cp Product Selection Permitted Signatures: Dispatcher [employer] EDMS Lawrence Mckeon PA PA cp Daisy Moore RN RN tw2 Yohana Sepulveda RN RN 6 Corrections: (The following items were deleted from the chart) 14:17 14:16 PSHx: None; tw2 tw2
--- NOTE | 2022-06-03 17:31 | ER ---
Nurse's Notes [facility] Name: Doris Langley Age: 37 yrs Sex: Female : 1985 Arrival Date: 06/03/2022 Time: 13:42 Bed 16 Private MD: Diagnosis: Heat exhaustion, unspecified;Adverse effect of amphetamines, initial encounter;UTI/ Urinary tract infection, site not specified Presentation: 06/03 13:38 Acuity: MAURI 3 tw2 13:38 Chief complaint: EMS states: the call was for heat cramps/heat exposure. when we tw2 arrived she was in a cool environment, skin was warm and dry. she was not diaphoretic. she had slurred speech and pinpoint pupils. she was sleepy. noted wheezing on right side. vs stable. not treatment in route. 14:12 Chief complaint: Patient states: i called EMS. i was walking for 15 or 20 minutes i got tw2 real real severe cramps and then i sat down and then it was hard for me to stand back up. i have been having RIGHT ear pain and have been putting some otc stuff in it and it will drain and i dont know it it caused the cramps. i felt like i was going to pass out to. Chief complaint:. Coronavirus screen: At this time, the client does not indicate any symptoms associated with coronavirus-19. Ebola Screen: Patient denies travel to an Ebola-affected area in the 21 days before illness onset. Initial Sepsis Screen: Does the patient meet any 2 criteria? No. Patient's initial sepsis screen is negative. Does the patient have a suspected source of infection? No. Patient's initial sepsis screen is negative. Risk Assessment: Do you want to hurt yourself or someone else? Patient reports no desire to harm self or others. Note provider C, JEANNIE Mckeon in triage room performing assessment. Onset of symptoms was June 03, 2022. 14:12 Method Of Arrival: EMS: [facility] tw2 Triage Assessment: 14:17 General: Appears in no apparent distress. slender, Behavior is calm, cooperative, tw2 appropriate for age. Pain: Complains of pain in right ear. Derm: Skin is intact, Skin is dry, Skin temperature is warm. KEG FILLER: 14:18 LMP N/A - tubaligation tw2 Historical: - Allergies: 14:16 Clindamycin; tw2 - Home Meds: 14:16 None [Active]; tw2 - PMHx: 14:16 None; tw2 - PSHx: 14:16 section; tubaligation; tw2 - Immunization history:: Client reports having NOT received the Covid vaccine. - Social history:: Smoking status: Patient reports the use of cigarette tobacco products, smokes one pack cigarettes per day. Patient uses alcohol, occasionally. Screenin:30 Abuse screen: Denies threats or abuse. Nutritional screening: No deficits noted. jh6 Tuberculosis screening: No symptoms or risk factors identified. Fall Risk Assessment: 16:30 General: Appears in no apparent distress. Behavior is calm, cooperative. Pain: jh6 Complains of pain in coccyx Pain currently is 3 out of 10 on a pain scale. 16:30 General: pt brought into room 16 at this time. states that she has been feeling tires jh6 and general body aches for 2wks. 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 skin w/d nad. 18:15 Reassessment: Patient and/or family updated on plan of care and expected duration. Pain jh6 level reassessed. Patient is alert, oriented x 3, equal unlabored respirations, skin warm/dry/pink. Patient denies pain at this time. Patient states symptoms have improved. Vital Signs: 14:12 BP 119 / 93; Pulse 85; Resp 18; Temp 98.4(TE); Pulse Ox 99% on R/A; Weight 56.7 kg (R); tw2 Height 5 ft. 3 in. (160.02 cm) (R); 16:45 BP 122 / 89; Pulse 56; Resp 16; Pulse Ox 98% ; Pain 2/10; jh6 14:12 Body Mass Index 22.14 (56.70 kg, 160.02 cm) tw2 ED Course: 13:42 Patient arrived in ED. mr 14:13 Lawrence Mckeon PA is PHCP. cp 14:13 Lawrence Stephens MD is Attending Physician. cp 14:16 Triage completed. tw2 14:17 Arm band placed on. tw2 14:51 XRAY Chest (1 view) In Process Unspecified. EDMS 15:20 Inserted saline lock: 20 gauge in left antecubital area, using aseptic technique. Blood ss collected. 16:21 Yohana Sepulveda, RN is Primary Nurse. [facility] 16:30 Bed in low position. Call light in reach. Side rails up X 1. 6 18:31 No provider procedures requiring assistance completed. 6 18:31 IV discontinued, intact, bleeding controlled, No redness/swelling at site. Pressure 6 dressing applied. Administered Medications: 17:00 Drug: NS 0.9% 1000 ml Route: IV; Rate: 1 bolus; Site: right antecubital; 6 17:00 Drug: Rocephin (cefTRIAXone) 1 grams Route: IV; Rate: calculated rate; Site: right [facility] antecubital; 17:40 Follow up: Response: No adverse reaction [facility] Medication: 18:31 VIS not applicable for this client. [facility] Outcome: 17:30 Discharge ordered by . cp 18:31 Discharged to home ambulatory. 6 18:31 Condition: stable 18:31 Discharge instructions given to patient, Instructed on discharge instructions, Demonstrated understanding of instructions, medications, Prescriptions given X 1. 18:32 Patient left the ED. [facility] Signatures: Dispatcher [employer] [facility] Tabatha CaseAde RN RN Lawrence Rae, JEANNIE PA Daisy Craig RN RN 2 Yohana Sepulveda, RN RN 6 Corrections: (The following items were deleted from the chart) 14:17 14:16 PSHx: None; 14:21 14:12 Acuity: MAURI 3 tw
--- NOTE | 2022-06-04 12:32 | EKG ---
Test Date: 2022-06-03 Test Time: 16:45:11 Assisted Living Administrator: JUVENTINO MEASUREMENT RESULTS: Intervals: Rate: 52 MT: 136 QRSD: 96 QT: 488 QTc: 453 [place]: P: 72 MT: 136 QRS: -43 T: 46 INTERPRETIVE STATEMENTS: Sinus bradycardia Left axis deviation RSR' or QR pattern in V1 suggests right ventricular conduction delay Abnormal ECG Compared to ECG 12/06/2018 21:09:50 Left-axis deviation now present RSR' in V1 or V2 now present Sinus rhythm no longer present Incomplete right bundle-branch block no longer present Electronically Signed On 06-04-22 12:32:04 CDT by Elia Lewis
[2022-06-04 23:10] VITALS: TEMP 98.4
[2022-06-04 23:28] VITALS: BP 122/89; O2SAT 98
== END 2022-06-03 18:32 | disposition home or self-care (01) ==
LOC: ER 13:36
DX: T67.5XXA Heat exhaustion, unspecified, initial encounter (principal); N39.0 Urinary tract infection, site not specified; T43.625A Adverse effect of amphetamines, initial encounter; F17.210 Nicotine dependence, cigarettes, uncomplicated; Z88.3 Allergy status to other anti-infective agents
CPT/HCPCS: 36415; 71045; 80048; 80076; 80307; 81003; 81015; 82550; 83735; 84484; 85025; 87077; 87086; 87088; 87186; 93005; 96374; 99284; J7030

== ENCOUNTER 2023-03-08 12:35 | Inpatient (IN) | payer SELFPAY ==
--- OUTSIDE RECORDS SUMMARY | 2023-03-08 12:42 | XMS REPORT | Continuity of Care Document ---
:1985 Author Organization [facility] t Address [address] [facility] [address] [place] [address] Care Team Providers Name Role Phone No, Pcp [facility] Primary Care Physician Unavailable Doctor Unassigned, [place] Attending Clinician Unavailable SAMANTHA GILLESPIE Attending Clinician Unavailable SAMANTHA GILLESPIE Admitting Clinician Unavailable Payers Payer Name Policy Type Policy Number Effective Date Expiration Date S ource Problems Condition Condition Condition Status Onset Resolution Last Treating Co mments Source Name Details Category Date Date Treatment Clinician Date Fracture Fracture [facility] Open Open Disease Active [address] [facility] [address] displaced displaced 04-04 [facility] fracture fracture 00:00: Med[facility] l of of 00 Center tuberosity tuberosity of left of left calcaneus calcaneus [place] Disease Active 2019 U nivers lar lar 3-21 ity of abscess abscess 00:00: [place] 00 Medical Branch Allergies, Adverse Reactions, Alerts Allergy Allergy Status Severity Reaction(s) Onset Inactive Treating Comm ents Source Name Type Date Date Clinician Clindamy Propensi Active [facility] adverse 00:00: Medical reaction 00 Center s Clindamy Propensi Active Hives 2015-09 Univer s diya ty to 1-13 ity of adverse 00:00: [place] reaction 00 Medical s Branch Social History Social Habit Start Date Stop Date Quantity Comments Source History of tobacco Smokes tobacco [facility] Tobacco use and 2019-04-04 2019-04-04 Current user MAO [place] exposure 00:00:00 00:00:00 [facility] Cigarettes smoked 2018-12-08 2018-12-08 Univers ity of current (pack per 00:00:00 00:00:00 [facility] ) - Reported Branch Alcohol intake 2018-12-08 2018-12-08 [facility] 00:00:00 00:00:00 [facility] Sex Ass[birth year] At [birth year] MAO Cat[place] 00:00:00 00:00:00 [facility] Smoking Status Start Date Stop Date Source Current every day smoker 2018-12-08 00:00:00 [facility] versity of [facility] Medications Ordered Filled Start Stop Current Ordering Indication Dosage Frequency Signature Comments Components Source Medication Medication Date Date Medication? Clinician (SIG) Name Name chlorhexidi Yes [id number] 15mL Swish and Univers ne 0.12 % 3-22 spit out ity of mouthwash 00:00: 15 mL 2 [place] 00 (two) Medical times Branch daily. HYDROcodone Yes [id number] 1{tbl} Take 1 Univers -acetaminop 3-22 tablet by ity of hen (NORCO) 00:00: mouth [place] 5-325 mg 00 every 6 Medical tablet (six) Branch hours as needed for Pain (scale 4-6). ibuprofen Yes [id number] 600mg Take 1 U nivers 600 mg 3-22 tablet by ity of tablet 00:00: mouth [place] 00 every 6 Medical (six) Branch hours as needed for Pain (scale 1-3) or Pain (scale 4-6). traMADOL 2015-09 Yes 50mg Take 1 Univers (ULTRAM) 50 2-02 tablet by ity of mg tablet 00:00: mouth [place] 00 every 6 Medical (six) Branch hours as needed for Pain (scale 4-6). Ervin Almazan PA-C / Denzel Reddy MD LIYAH# [id number] DPS# [id number] Lic.# [id number] NPI# [id number] pentazocine 2015-09 Yes 1{tbl} Take 1 Un mckenzie -naloxone 1-13 tablet by ity o f (DEVAN HENSON) 00:00: mouth [place] 50-0.5 mg 00 every 4 Medical tablet (four) Branch hours as needed for Pain for up to 20 doses. Procedures Procedure Date / Time Performing Clinician Source Performed AUTHORIZATION FOR 2019-11-21 06:01:00 Doctor Unassigned, No [facility] RELEASE OF PHI Name Medical Branch Encounters Start End Encounter Admission Attending Care Care Encounter Source Date/Time Date/Time Type Type Clinicians Facility Department ID 2023-03-02 2023-03-02 Outpatient [facility] [id number] 16:57:00 16:57:00 [id number] 2019-11-21 2019-11-21 Orders Doctor CHERELLE [id number] Univers 00:00:00 00:00:00 Only Unassigned, TIM 350.1.13.10 ity of [place] [facility] [id number] Nolan as [id number] [facility] 009 Branch Results Test Description Test Time Test Comments Results Result Comments Source PAP TEST, THINPREP, IMAGED 2023-01-20 23:50:57 Test Item Value Reference Range Interpretation Comme nts SOURCE: (test code = Cervical/Endocervical 8001) SLIDES: (test code = 1 8011) LMP: (test code = 01/12/2023 8021) SPECIMEN ADEQUACY: (NOTE) Satisfac tory for (test code = 31628) evaluati on. Endocervical cells/transform ation zone component prese nt. INTERPRETATION: NILM/NO EPITH. ABNORMALITY;SEE (test code = 18313) BELOW -------- NEGATIVE FOR INTRAEPITHE LIAL LESION OR MALIGNANCY ( NILM) -- OTHER COMMENTS: (NOTE) Shift in humberto ra suggestive of (test code = 8081) bacterial vaginosis. CORK FLOOR INSTALLER: ROSA Johnson(ASCP) (test code = 8101) LOCATION: (test code (NOTE) Specime ns processed and = 29690) [facility] at [facility], [address] [place] [id number], Phone: , CLIA: [id number] CPT: (test code = (NOTE) [address]58[address] UNLE SS OTHERWISE 8140) INDICATED, COMP UTER AIDED AND CYTOTECHNOL OGIST SCREENING PERFO RMED. The Pap test is a scree payam test with an inheren t, but low probability of error. Your patient should be reminded to consult you immediately if she experien alona any suspicious sign s or symptoms, regar dless of her Pap test result . An alternate repor t format containing imag es or consolidated pr ior Pap history is avai lable as applicable. HPV HIGH RISK WITH GENOTYPE, [id number] 20:00:23 Test Item Value Reference Range Interpretation Comments HPV HIGH RISK INTERP NEGATIVE NEGATIVE (test code = 70466) HPV 16 (test code = NEGATIVE 14810) HPV 18 (test code = NEGATIVE 97834) HPV, HR, OTHER NEGATIVE Testing meth odology is GENOTYPES (test code real-ti me PCR utilizing = 01933) hydrolysis prob es with the [employer] 4800 system. The tata t individually de tects genotypes 16 an d 18, as well as the oth er 12 high risk types (31,33,35,39,45 ,51,52,56 ,58,59,66,68). The expected result is negative. A neg ative result does not rule out the presence of HPV not included in the genotype set, a low leve l of infection or sp ecimen sampling error. [facility] has important p athology staff changes e ffective 11/17/2022. New pathology staff will provide uninter rupted, excellent patie nt care and clinical consultation. S ee URL: [email or web address] UNLESS OTHERWISE INDIC ATED, ALL TESTING PERFORM ED AT [facility], [address] [place] [address] LABORATORY DIRE CTOR: CIARA BUCHANAN M.D. CLIA NUMBER [id number] [place] [id number] CT/NG, NAAT, [id number] 11:43:27 Test Item Value Reference Range Interpretation Comments CHLAMYDIA, NAAT, NEGATIVE NEGATIVE A negative result does THINPREP (test code not excl ude low level = 74559) infection, specimensamplin g error, or collection erro r. Testing is performed wi th the [employer] 680 systems usingre al-time Polymerase Sagar n Reaction (PCR) method. GONORRHEA, NAAT, NEGATIVE NEGATIVE A negative result does THINPREP (test code not excl ude low level = 01686) infection, specimensamplin g error, or collection erro r. Testing is performed wi th the [employer] 680 systems usingre al-time Polymerase Sagar n Reaction (PCR) method. FL, DEATH SURVEYS CODER IN OR/30 MINUTE [id number] 14:01:00Reason for exam:- >Left open tongue type calcaneus fracturePROCEDURE PERFORMED IN O.R. - PLEASE REFER TO THE INTRAOPERATIVE REPORT. BASIC METABOLIC [id number] 10:46:00 Test Item Value Reference Range Interpretation Comments SODIUM (BEAKER) 138 meq/L 136-145 (test code = 381) POTASSIUM (BEAKER) 3.4 meq/L 3.5-5.1 L (test code = 379) CHLORIDE (BEAKER) 108 meq/L 98-107 H (test code = 382) CO2 (BEAKER) (test 23 meq/L 22-29 code = 355) BLOOD UREA NITROGEN 7 mg/dL 7-21 (BEAKER) (test code = 354) CREATININE (BEAKER) 0.72 mg/dL 0.57-1.25 (test code = 358) GLUCOSE RANDOM 108 mg/dL 70-105 H (BEAKER) (test code = 652) CALCIUM (BEAKER) 8.4 mg/dL 8.4-10.2 (test code = 697) EGFR (BEAKER) (test 92 mL/min/1.73 ESTIMA YOVANY GFR IS code = 1092) sq m NOT ACCURATE CREATININE CLEARANCE IN PREDICTING GLOMERULAR FILTRATION RATE . ESTIMATED GFR I S NOT APPLICABLE FOR DIALYSIS PATIEN TS. CBC W/PLT COUNT & AUTO [id number] 10:26:00 Test Item Value Reference Range Interpretation [...] (BEAKER) (test code = 2801) COMPREHENSIVE METABOLIC [id number] 07:45:00 Test Item Value Reference Range Interpretation [...] APPLICABLE FOR DIALYSIS PATIEN TS. BASIC METABOLIC [id number] 07:45:00 Test Item Value Reference Range Interpretation [...] PATIEN TS. CBC W/PLT COUNT & AUTO [id number] 05:27:00 Test Item Value Reference Range Interpretation [...] = 2801) CBC W/PLT COUNT & AUTO [id number] 14:02:00 Test Item Value Reference Range Interpretation [...] PERCENT (BEAKER) (test code = 2801) SCREEN, [id number] 13:10:00 Test Item Value Reference Range Interpretation Comments TEST URINE (BEAKER) (test Negative code = 583) [id number] 12:20:00 Test Item Value Reference Range Interpretation [...] mechanical heart valves.RAD, CHEST, 1 VIEW, NON [id number] 11:38:00Reason for exam:->pre-opShould this be performed at the bedside?->YesFINAL REPORT Chest, portable AP view History: Calcaneus fracture, preop evaluation Comparison: No comparisons available for review IMPRESSION: The cardiomediastinal silhouette and pulmonary vasculature are within normal limits. The lungs are clear without evidence of consolidationor effusion. There are no acute osseous abnormalities. Signed: Brendon Chang Verified Date/Time: 04/04/2019 11:38:54 Reading Location: [facility] Reading Room RAD, HEEL, 2 VIEWS, [id number] 11:12:00 Reason for exam:->fx assessmentShould this be [...] Chang Verified Date/Time: 04/04/2019 11:12:04 Reading Location: [facility] Radiology Reading Room
[2023-03-08 13:12] LABS: Absolute Lymphocytes (CBC) 1.7 K/uL (0.7-4.9); Hematocrit 35.2 % (36.0-45.0); Lymphocytes % 13.3 % (15.3-44.8); MCV 83.1 fL (80-100); MPV 7.4 fL (7.6-11.3); RBC Red Blood Cell Count 4.23 M/uL (3.86-4.86)
[2023-03-08] MEDS ORDERED: MORPHINE 4 MG/ML SYR ONE (13:19)
[2023-03-08] MEDS ORDERED: NA CHLORIDE 0.9% 1,000 ML ONE ×2 (13:20→17:02)
[2023-03-08] MEDS ORDERED: FAMOTIDINE 20 MG/2 ML VIAL IV ONE (13:20)
[2023-03-08] MEDS ORDERED: ONDANSETRON 4 MG/2 ML VIAL ONE (13:20)
[2023-03-08 14:39] LABS: Bilirubin Total 0.2 mg/dL (0.2-1.0); Potassium 3.8 mEq/L (3.5-5.1); Protein, Total 6.5 g/dL (6.4-8.2)
--- NOTE | 2023-03-08 15:24 | RAD REPORT ---
EXAM DESCRIPTION: CT - Abdomen Pelvis W Contrast - 03/08/2023 2:59 pm CLINICAL HISTORY: Abdominal pain COMPARISON: none. TECHNIQUE: Computed axial tomography of the abdomen pelvis was obtained. 100 cc Isovue-300 was admin istered intravenously. Oral contrast was not requested which limits evaluation of bowel and appendix All CT scans are performed using dose optimization technique as appropriate and may include automated exposure control or mA/KV adjustment according to patient size. FINDINGS: A 2 centimeter stone within the gallbladder neck. Gallbladder wall thickening. Mild dilata tion intrahepatic biliary tree. Mild gallbladder distention Pancreas, adrenals, kidneys and spleen unremarkable There is no evidence of diverticulitis. No adnexal mass IMPRESSION: Cholelithiasis. Gallbladder wall thickening probably indicating cholecystitis. The stone maybe impacted within the gallbladder neck. Mild intrahepatic dilatation
[2023-03-08 15:52] LABS: Calcium Oxalate Crystals- Ur Few /HPF (None Seen); Urine Bacteria <20 /HPF (<20); Urine Bilirubin NEGATIVE (Negative); Urine Blood Trace (Negative); Urine Clarity Clear (Clear); Urine Color Light-Yellow (Yellow); Urine Glucose NEGATIVE (Negative); Urine Mucus 1+ /HPF (None Seen); Urine Protein 1+ (Negative); Urine Urobilinogen Normal (Normal)
--- NOTE | 2023-03-08 16:44 | EDPHYS ---
Physician Documentation [facility] Name: Doris Langley Age: 38 yrs Sex: Female : 1985 Arrival Date: 03/08/2023 Time: 12:35 Bed 8 Private MD: ED Physician Jamie Reeves HPI: 03/08 12:50 This 38 yrs old Female presents to ER via EMS with complaints of Abdominal Pain. cp 12:50 The patient presents with abdominal pain stomach. Onset: The symptoms/episode cp began/occurred this morning. Associated signs and symptoms: Pertinent positives: nausea and vomiting, Pertinent negatives: chest pain, constipation, diarrhea, fever, headache. The symptoms are described as constant. Modifying factors: the symptoms are aggravated by pressure. Severity of pain: in the emergency department the pain is actually worse. 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 - Social history:: Smoking status: Patient reports the use of cigarette tobacco products. ROS: 12:55 Constitutional: Positive for poor PO intake, Negative for body aches, chills, fever. cp 12:55 Eyes: Negative for injury, pain, redness, and discharge. cp 12:55 ENT: Negative for drainage from ear(s), ear pain, sore throat, difficulty swallowing, difficulty handling secretions. 12:55 Cardiovascular: Negative for chest pain. 12:55 Respiratory: Negative for cough, shortness of breath, wheezing. 12:55 Abdomen/GI: Positive for abdominal pain, nausea and vomiting, Negative for vomiting, diarrhea, hematemesis, black/tarry stool. 12:55 : Negative for urinary symptoms. 12:55 Neuro: Negative for altered mental status. 12:55 All other systems are negative. Exam: 13:00 Constitutional: The patient appears in no acute distress, alert, awake, non-toxic, well cp developed, well nourished, in obvious pain, uncomfortable. 13:00 Head/Face: Normocephalic, atraumatic. cp 13:00 Eyes: Periorbital structures: appear normal, Conjunctiva: Sclera: no appreciated abnormality, Lids and lashes: appear normal, bilaterally. 13:00 ENT: External ear(s): are unremarkable, Nose: is normal, Mouth: Lips: moist, Oral mucosa: pink and intact, moist, Posterior pharynx: is normal, airway is patent, no erythema, no exudate. 13:00 Neck: ROM/movement: is normal, is supple, without pain, no range of motions limitations. 13:00 Chest/axilla: Inspection: normal. 13:00 Cardiovascular: Rate: bradycardic, Rhythm: regular. 13:00 Respiratory: the patient does not display signs of respiratory distress, Respirations: normal, no use of accessory muscles, no retractions, labored breathing, is not present, Breath sounds: are clear throughout, no decreased breath sounds, no stridor, no wheezing. 13:00 Abdomen/GI: Inspection: abdomen appears normal, Bowel sounds: active, all quadrants, Palpation: soft, in all quadrants, severe abdominal tenderness, in the umbilical area, right upper quadrant and left upper quadrant, rebound tenderness, is not appreciated. 13:00 Back: pain. 13:00 Skin: no rash present. 13:00 Neuro: Orientation: to person, place \T\ time. Mentation: able to follow commands, Motor: moves all fours, strength is normal. Vital Signs: 12:40 BP 132 / 96; Pulse 58; Resp 18; Temp 98.2; Pulse Ox 98.5% ; Weight 61.23 kg; Height 5 iw ft. 4 in. ; Pain 9/10; 17:43 BP 106 / 72; Pulse 61; Resp 16; Pulse Ox 100% ; bp 12:40 Body Mass Index 23.17 (61.23 kg, 162.56 cm) iw 12:40 Pain Scale: Adult iw MDM: 12:53 Patient medically screened. cp 13:00 Differential diagnosis: appendicitis, bowel obstruction, cholecystitis, Cholelithiasis, cp non-specific abd pain, pancreatitis, Peptic Ulcer Disease, Perf. Duodenal Ulcer, Perf. Gastric Ulcer, Ureterolithiasis, urinary tract infection. 16:25 Data reviewed: vital signs, nurses notes, lab test result(s), radiologic studies, CT cp scan. 16:25 Management of patient was discussed with the following: Small Machine Bindery Operator: DR Garcia will consult and requests patient to be npo after midnight and admit to hospitalist services. I considered the following discharge prescriptions or medication management in the emergency department Medications were administered in the Emergency Department. See NOV. 16:28 ED course: attempt to call DR Kirby and unable to leave [facility]. Text sent with patient info. 03/08 12:40 Order name: CBC with Diff; Complete Time: 14:58 03/08 16:17 Interpretation: WBC 13.10; HGB 11.1; HCT 35.2; MCH 26.2; MCHC 31.6; PLT 556; RDW 16.1; cp MPV 7.4; LYM% 13.3; EOSINOPHIL % 14.0; NEUT A 8.7; EOSA 1.8; Reviewed. 03/08 12:40 Order name: CMP; Complete Time: 14:58 03/08 12:40 Order name: Lipase; Complete Time: 14:58 03/08 12:40 Order name: Test, Urine; Complete Time: 16:16 03/08 12:40 Order name: Urinalysis w/ reflexes; Complete Time: 16:16 03/08 16:16 Interpretation: Reviewed. 03/08 15:55 Order name: Urine Culture EDAZ 03/08 16:42 Order name: Lactate w/ 2H reflex if indic.; Complete Time: 18:53 03/08 16:42 Order name: Blood Culture Adult (2) 03/08 17:33 Order name: Magnesium; Complete Time: 18:53 EDAZ 03/08 17:33 Order name: Phosphorus; Complete Time: 18:53 EDAZ 03/08 17:35 Order name: Urinalysis w/ reflexes EDAZ 03/08 17:35 Order name: Basic Metabolic Panel EDAZ 03/08 17:35 Order name: Basic Metabolic Panel EDAZ 03/08 17:35 Order name: CBC with Automated Diff EDAZ 03/08 17:35 Order name: CBC with Automated Diff EDAZ 03/08 19:03 Order name: Urine Drug Screen lg3 03/08 19:24 Order name: Urine Drug Screen EDAZ 03/08 13:01 Order name: CT Abd/Pelvis - IV Contrast Only; Complete Time: 16:16 03/08 17:33 Order name: Clear Liquid [facility] 03/08 17:33 Order name: CONS Physician Consult [facility] 03/08 17:36 Order name: NPO; Complete Time: 19:17 EDAZ 03/08 12:40 Order name: IV Saline Lock; Complete Time: 13:12 cp 03/08 12:40 Order name: Labs collected and sent; Complete Time: 13:12 cp 03/08 13:19 Order name: Labs - recollect needed: recollect green top; Complete Time: 14:18 bd Administered Medications: 13:28 Drug: Ondansetron IVP 4 mg Route: IVP; Site: right antecubital; ll1 15:40 Follow up: Response: No adverse reaction cm10 13:28 Drug: NS 0.9% IV 1000 ml Route: IV; Rate: 1 bolus; Site: right antecubital; ll1 15:39 Follow up: IV Status: Completed infusion; IV Intake: 1000ml cm10 15:39 Follow up: Response: No adverse reaction cm10 13:28 Drug: Famotidine IVP 20 mg Route: IVP; Site: right antecubital; ll1 15:39 Follow up: Response: No adverse reaction cm10 13:29 Drug: morphine IVP or IV 4 mg {Note: RASS 0, pain 9/10.} Route: IVP; Infused Over: 4 ll1 mins; Site: right antecubital; 15:39 Follow up: Response: No adverse reaction cm10 17:20 Drug: NS 0.9% IV 1000 ml Route: IV; Rate: 1 bolus; Site: right antecubital; cm10 18:23 Follow up: IV Intake: 1000ml cm10 17:20 Drug: Piperacillin-Tazobactam IVPB 3.375 grams Route: IVPB; Infused Over: 60 mins; cm10 Site: right antecubital; 18:22 Follow up: Response: No adverse reaction; IV Status: Completed infusion cm10 Disposition Summary: 03/08/23 16:44 Hospitalization Ordered Hospitalization Status: Inpatient Admission cp Provider: Deepak Wayne cp Location: Telemetry/MedSurg (Inpatient) cp Condition: Stable cp Problem: new cp Symptoms: have improved cp Bed/Room Type: Standard Room Assignment: 214(03/08/23 18:36) Diagnosis - Calculus of gallbladder and bile duct with acute cholecystitis with obstruction cp Forms: - Medication Reconciliation Form cp - SBAR form cp Signatures: Dispatcher [employer] EDMS Shantelle Ramírez Diana, RN RN dw Williams, Irene, RN RN iw Lawrence Mckeon PA PA cp Lewis, Lynsay, RN RN ll1 Licha Savage RN RN cm10 Corrections: (The following items were deleted from the chart) 12:41 12:41 Home Meds: None; [facility] 16:17 16:17 Reviewed. cp cp 18:36 16:44 cp dw 03/09 13:42 13:41 This 38 yrs old Female presents to ER via EMS with complaints of Abdominal Pain. cp cp
--- NOTE | 2023-03-08 16:44 | ER ---
Nurse's Notes [facility] Name: Doris Langley Age: 38 yrs Sex: Female : 1985 Arrival Date: 03/08/2023 Time: 12:35 Bed 8 Private MD: Diagnosis: Calculus of gallbladder and bile duct with acute cholecystitis with obstruction Presentation: 03/08 12:36 Chief complaint: EMS states: this morning /o abd pain, general, sharp , + nauseous , iw regular BM. Coronavirus screen: At this time, the client does not indicate any symptoms associated with coronavirus-19. Ebola Screen: Patient negative for fever greater than or equal to 101.5 degrees Fahrenheit, and additional compatible Ebola Virus Disease symptoms Patient denies exposure to infectious person. Patient denies travel to an Ebola-affected area in the 21 days before illness onset. No symptoms or risks identified at this time. Initial Sepsis Screen: Does the patient meet any 2 criteria? No. Patient's initial sepsis screen is negative. Does the patient have a suspected source of infection? No. Patient's initial sepsis screen is negative. Risk Assessment: Do you want to hurt yourself or someone else? Patient reports no desire to harm self or others. Onset of symptoms was March 08, 2023. 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 - Social history:: Smoking status: Patient reports the use of cigarette tobacco products. Screenin:15 [facility] ED Fall Risk Assessment (Adult) History of falling in the last 3 months, cm10 including since admission No falls in past 3 months (0 pts) Confusion or Disorientation No (0 pts) Intoxicated or Sedated No (0 pts) Impaired Gait No (0 pts) Mobility Assist Device Used No (0 pt) Altered Elimination No (0 pt) Score/Fall Risk Level 0 - 2 = Low Risk. Abuse screen: Denies threats or abuse. Denies injuries from another. Nutritional screening: No deficits noted. Tuberculosis screening: No symptoms or risk factors identified. Assessment: 13:13 General: Appears in no apparent distress. uncomfortable, Behavior is calm, cooperative. cm10 Pain: Complains of pain in right upper quadrant and left upper quadrant Pain radiates to back Pain currently is 9 out of 10 on a pain scale. Quality of pain is described as crampy, Pain began suddenly, this morning. woke up with the pain. Alleviated by heat application, Noted to be. Neuro: No deficits noted. Level of Consciousness is awake, alert, Oriented to person, place, time, situation. Cardiovascular: No deficits noted. Heart tones present Capillary refill < 3 seconds. Respiratory: No deficits noted. Airway is patent Respiratory effort is even, unlabored, Respiratory pattern is regular, symmetrical. GI: Bowel sounds present X 4 quads. Abdomen is tender to palpation in right upper quadrant and left upper quadrant Reports upper abdominal pain, nausea, vomiting. 13:29 Reassessment: No changes from previously documented assessment. Patient and/or family ll1 updated on plan of care and expected duration. Pain level reassessed. Patient is alert, oriented x 3, equal unlabored respirations, skin warm/dry/pink. 14:28 Reassessment: No changes from previously documented assessment. Patient and/or family cm10 updated on plan of care and expected duration. Pain level reassessed. Patient is alert, oriented x 3, equal unlabored respirations, skin warm/dry/pink. 17:43 Reassessment: ADMIT IN PROCESS. bp 18:33 Reassessment: No changes from previously documented assessment. Patient and/or family cm10 updated on plan of care and expected duration. Pain level reassessed. Patient is alert, oriented x 3, equal unlabored respirations, skin warm/dry/pink. Vital Signs: 12:40 BP 132 / 96; Pulse 58; Resp 18; Temp 98.2; Pulse Ox 98.5% ; Weight 61.23 kg; Height 5 iw ft. 4 in. ; Pain 9/10; 17:43 BP 106 / 72; Pulse 61; Resp 16; Pulse Ox 100% ; bp 12:40 Body Mass Index 23.17 (61.23 kg, 162.56 cm) iw 12:40 Pain Scale: Adult iw ED Course: 12:36 Patient arrived in ED. im 12:37 Triage completed. iw 12:38 Lawrence Mckeon PA is PHCP. cp 12:38 Jamie Reeves MD is Attending Physician. cp 12:40 Arm band placed on. iw 13:08 Licha Savage, DAHLIA is Primary Nurse. cm10 13:12 CBC with Diff Sent. cm10 13:12 CMP Sent. cm10 13:12 Lipase Sent. cm10 13:12 Test, Urine Sent. cm10 13:16 Patient has correct armband on for positive identification. Bed in low position. Call cm10 light in reach. Side rails up X2. Pulse ox on. NIBP on. 13:20 IV discontinued, intact, bleeding controlled, No redness/swelling at site. Pressure ll1 dressing applied, L AC. 13:23 Inserted saline lock: 22 gauge in right antecubital area, using aseptic technique. ll1 Blood collected. 13:56 Radiology exam delayed due to lab results not completed at this time. (BUN/Creatinine) jg10 test not completed at this time. 14:[address] cm10 15:01 CT Abd/Pelvis - IV Contrast Only In Process Unspecified. EDMS 15:37 Urinalysis w/ reflexes Sent. cm10 16:42 Deepak Wayne MD is Hospitalizing Provider. cp 18:37 No provider procedures requiring assistance completed. cm10 19:17 Urine Drug Screen Sent. lg3 19:23 Mehul Waller, DAHLIA is Primary Nurse. rv Administered Medications: 13:28 Drug: Ondansetron IVP 4 mg Route: IVP; Site: right antecubital; ll1 15:40 Follow up: Response: No adverse reaction cm10 13:28 Drug: NS 0.9% IV 1000 ml Route: IV; Rate: 1 bolus; Site: right antecubital; ll1 15:39 Follow up: IV Status: Completed infusion; IV Intake: 1000ml cm10 15:39 Follow up: Response: No adverse reaction cm10 13:28 Drug: Famotidine IVP 20 mg Route: IVP; Site: right antecubital; ll1 15:39 Follow up: Response: No adverse reaction cm10 13:29 Drug: morphine IVP or IV 4 mg {Note: RASS 0, pain 9/10.} Route: IVP; Infused Over: 4 ll1 mins; Site: right antecubital; 15:39 Follow up: Response: No adverse reaction cm10 17:20 Drug: NS 0.9% IV 1000 ml Route: IV; Rate: 1 bolus; Site: right antecubital; cm10 18:23 Follow up: IV Intake: 1000ml cm10 17:20 Drug: Piperacillin-Tazobactam IVPB 3.375 grams Route: IVPB; Infused Over: 60 mins; cm10 Site: right antecubital; 18:22 Follow up: Response: No adverse reaction; IV Status: Completed infusion cm10 Medication: 13:16 VIS not applicable for this client. cm10 Intake: 15:39 IV: 1000ml; Total: 1000ml. cm10 18:23 IV: 1000ml; Total: 2000ml. cm10 Outcome: 16:44 Decision to Hospitalize by Provider. cp 19:56 Admitted to Med/surg accompanied by tech, via wheelchair, room 214, with chart, Report lg3 called to Guillaume 19:56 Condition: stable 19:56 Instructed on the need for admit, Demonstrated understanding of instructions. 20:14 Patient left the ED. lg3 Signatures: Dispatcher [employer] EDMS Angelica Hoover RN RN iw Lawrence Mckeon, JEANNIE PA cp Jostin Bundy, RN DAHLIA bp Mehul Waller RN RN rv Gibson, Lacie, RN RN lg3 Dilshad Cooper RN RN ll1 Giovanna Long j0 Tawana Daigle Clarissa RN RN cm10 Corrections: (The following items were deleted from the chart) 12:41 12:41 Home Meds: None; iw iw 12:41 12:40 Resp 18bpm; Temp 98.2F; 61.23 kg; Height 5 ft. 4 in.; BMI: 23.1; Pain 05/29, iw Adult; iw
[2023-03-08] MEDS ORDERED: PIPERACIL/TAZO 3.375 GM VIAL IV ONE (17:02)
[2023-03-08] MEDS ORDERED: NA CHLORIDE 0.9% 100 ML ONE (17:02)
[2023-03-08] MEDS ORDERED: ACETAMINOPHEN 325 MG TABLET PO PRN (17:24)
[2023-03-08] MEDS ORDERED: ONDANSETRON 4 MG/2 ML VIAL IV PRN (17:31)
--- NOTE | 2023-03-08 17:33 | P.HP ---
Certification for Inpatient Patient admitted to: Inpatient With expected LOS: >2 Midnights Patient will require the following post-hospital care: None Practitioner: I am a practitioner with admitting privileges, knowledge of patient current condition, hospital course, and medical plan of care. Services: Services provided to patient in accordance with Admission requirements found in Title 42 Section 412.3 of the Code of Federal Regulations Patient History Date of Service: 03/08/23 Reason for admission: Abdominal History of Present Illness: Patient is a 38-year-old female with a past medical history significant for depression, anxiety disorder, nicotine dependence, polysubstance abuse who presents with complaint of generalized abdominal pain onset this morning. Patient rated pain as 8/10 in severity and described as sharp in quality. Patient reported associated signs and symptoms of nausea. Patient denies any other signs and symptoms. Symptoms are aggravated or relieved by nothing. Patient decided to present to the hospital due to worsening symptoms. Allergies No Known Allergies Allergy (Unverified 11/17/12 17:48) - Past Medical/Surgical History -: Anxiety disorder -: depression -: Drug use -: Nicotine dependence Past Surgical History: Reviewed- Non-Contributory - Family History Family History: Reviewed- Non-Contributory - Social History Smoking Status: Current every day smoker Counseled patient to stop smoking for: less than 10 minutes Smoking therapy provided: Yes Patient receptive to therapy: No Alcohol use: Yes CD- Drugs: Yes Caffeine use: Yes Place of Residence: Home Review of Systems General: Unremarkable Eyes: Unremarkable ENT: Unremarkable Respiratory: Unremarkable Cardiovascular: Unremarkable Gastrointestinal: Nausea, Abdominal Pain Genitourinary: Unremarkable Musculoskeletal: Unremarkable Integumentary: Unremarkable Neurological: Unremarkable Lymphatics: Unremarkable Physical Examination - Physical Exam General: Alert, In no apparent distress, Oriented x3, Cooperative HEENT: Atraumatic, PERRLA, Mucous membr. moist/pink, EOMI, Sclerae nonicteric Neck: Supple, 2+ carotid pulse no bruit, No LAD, Without JVD or thyroid abnormality Respiratory: Clear to auscultation bilaterally, Normal air movement Cardiovascular: No edema, Regular rate/rhythm, Normal S1 S2 Capillary refill: <2 Seconds Gastrointestinal: Normal bowel sounds, Tenderness Musculoskeletal: No clubbing, No swelling, No tenderness Integumentary: No rashes, No significant lesion Neurological: Normal speech, Normal strength at 5/5 x4 extr, Normal tone, Normal affect Lymphatics: No axilla or inguinal lymphadenopathy - Studies Laboratory Data (last 24 hrs) 03/08/23 14:05: Sodium 138, Potassium 3.8, BUN 14, Creatinine 0.89, Glucose 94, Total Bilirubin 0.2, AST 77 H, ALT 55, Alkaline Phosphatase 77, Lipase 32 03/08/23 13:04: WBC 13.10 H, Hgb 11.1 L, Hct 35.2 L, Plt Count 556 H Assessment and Plan - Plan --Acute cholecystitis with obstruction. CT imaging indicates 2 cm stone within the gallbladder neck. MRCP indicates acute cholecystitis with cholelithiasis. MRCP also confirmed 2 cm stone impacted within the gallbladder neck. Surgeon and solder leveler printed circuit boards consulted. Continue antibiotics. Surgeon plans for cholecystectomy in a.m. We will keep patient n.p.o. after midnight. We will await further recommendation from surgeon and GI MD. --Acute pain. We will manage pain with current pain medication regimen. -- Anxiety disorder\depression. Continue home medication. --Illicit Drug. UDS positive for amphetamines, THC and opiates. Patient counseled on drug cessation. --UTI POA. Continue antibiotics. Urine cultures pending. --CKD 2. Stable. Continue IV hydration. We will continue to monitor renal functions. --Microcytic anemia. H&H stable. We will continue to monitor hemoglobin and transfuse if less than 7.0. --Leukocytosis. Likely secondary to cholecystitis. Blood cultures pending. Continue antibiotics. --Nicotine Dependence. Patient counseled on tobacco cessation. Refuses nicotine patch. --DVT prophylaxis with SCDs. Discharge Plan: Home Plan to discharge in: Greater than 2 days - Advance Directives Does patient have a Living Will: No Does patient have a Durable POA for Healthcare: No - Code Status/Comfort Care Code Status Assessed: Yes Physician Review: Patient Assessed, Agree with Above Assessment and Plan Critical Care: No
[2023-03-08 18:36] LABS: Phosphorus 3.7 mg/dL (2.5-4.9)
[2023-03-08 19:24] LABS: Barbiturates NEGATIVE (NEGATIVE); Benzodiazepines NEGATIVE (NEGATIVE); Cocaine NEGATIVE (NEGATIVE); METHAMPHETAM POSITIVE (NEGATIVE); Methadone NEGATIVE (NEGATIVE); Opiates POSITIVE (NEGATIVE); Phencyclidine NEGATIVE (NEGATIVE); THC Cannibis POSITIVE (NEGATIVE)
--- NOTE | 2023-03-08 20:15 | RAD REPORT ---
EXAM DESCRIPTION: MRICholangiogram03/08/2023 7:46 pm CLINICAL HISTORY: Abdominal pain COMPARISON: CT abdomen March 08, 2023 TECHNIQUE: Magnetic resonance cholangiogram was performed.3D MIP reconstruction performed. Additiona l axial and coronal magnetic resonance imaging of abdomen obtained. FINDINGS: 2 centimeter stone impacted within the gallbladder neck. Gallbladder wall is thickened wit h pericholecystic fluid. Small amount of fluid extends into Morison's pouch. Intra and extrahepatic biliary tree are normal caliber. No filling defect visualized within the commo n bile duct. Periportal hepatic edema is present. Pancreatic duct is normal caliber IMPRESSION: Cholelithiasis with acute cholecystitis
[2023-03-08 20:52] VITALS: BMI 23.1
[2023-03-08] MEDS: NA CHLORIDE 0.9% 1,000 ML IV SCH (20:54)
[2023-03-09 03:47] LABS: Absolute Lymphocytes (CBC) 2.2 K/uL (0.7-4.9); Hematocrit 28.8 % (36.0-45.0); Lymphocytes % 26.6 % (15.3-44.8); MPV 7.8 fL (7.6-11.3); RBC Red Blood Cell Count 3.47 M/uL (3.86-4.86)
[2023-03-09 04:03] LABS: Potassium 3.3 mEq/L (3.5-5.1)
[2023-03-09 04:26] LABS: Blood Morphology Comment NOT SEEN (NOT SEEN); Platelet Estimate ADEQ
[2023-03-09] MEDS: NA CHLORIDE 0.9% 1,000 ML IV SCH ×3 (05:32→20:40)
[2023-03-09] MEDS: KCL 20 MEQ/100 mL IVPB 20 MEQ/100 ML BAG IV SCH ×2 (05:32→09:42)
--- NOTE | 2023-03-09 07:08 | P.PN ---
Date of Service: 03/09/23 Subjective: doing okay this morning intermittent abdominal pain remains ~same, but also states left side improved no nausea / diarrhea / vomiting today afebrile ROS: 10 point ROS as noted above, otherwise negative Physical Exam: GEN: Alert, oriented, NAD HEENT: Normal conjunctiva, sclera anicteric CV: Regular rate and rhythm, no edema Pulm: Nonlabored respirations on room air ABD: Soft, right-sided abdominal tenderness to deep palpation, no left sided tenderness Neuro: Normal speech, normal affect vitals reviewed Problem List: Acute cholecystitis with cholelithiasis CT imaging indicates 2 cm stone within the gallbladder neck. MRCP indicates acute cholecystitis with cholelithiasis. MRCP also confirmed 2 cm stone impacted within the gallbladder neck. General surgery and GI consulted Dr. Garcia recommended HIDA patient's exam, imaging, and self-report do not correlate. Patient denies having right upper quadrant pain at home, new left lower quadrant pain. On exam she is tender in the right abdomen/right upper quadrant, without tenderness left side possible cholecystectomy tomorrow pending HIDA scan results Continue Zosyn (03/08-) PRN pain meds IVF kidney function back to normal UTI POA Urine cultures pending Blood cultures pending Continue Zosyn (03/08-) Microcytic anemia. slight drop, no active bleed reports h/o iron deficiency with Anxiety disorder\depression. Continue home medication. Nicotine Dependence. Patient counseled on tobacco cessation. Refuses nicotine patch. Illicit Drug. UDS positive for amphetamines, THC and opiates. Patient counseled on drug cessation. Code: Full Dispo: Home, ~2 days
[2023-03-09 09:06] LABS: Albumin 2.8 g/dL (3.4-5.0); Bilirubin Total 0.4 mg/dL (0.2-1.0); Potassium 3.5 mEq/L (3.5-5.1); Protein, Total 5.7 g/dL (6.4-8.2)
[2023-03-09 10:09] LABS: Hepatitis B Core IgM Nonreactive (Nonreactive); Hepatitis B surface AG Interp. Nonreactive (Nonreactive); Hepatitis C Virus Ab Nonreactive (Nonreactive)
[2023-03-09] MEDS ORDERED: POTASSIUM 25 MEQ EFFERV TAB PO ONE (17:00)
--- NOTE | 2023-03-09 17:20 | RAD REPORT ---
EXAM DESCRIPTION: NM - Hepatobiliary System Imagin - 03/09/2023 3:36 pm CLINICAL HISTORY: Abdominal pain. Concern for Acute cholecystitis COMPARISON: CT abdomen and pelvis and MRI abdomen/cholangiogram 03/08/2023. TECHNIQUE: The patient was administered approximately 6.1 mCi Tc99m Choletec. Imaging of the right u pper quadrant was performed initially for up to 90 minutes. Exam is motion degraded which somewhat li mits evaluation. No synthetic CCK was administered. FINDINGS: There is homogeneous uptake of radiopharmaceutical throughout the liver. There is no delay in visualization of the biliary tree or duodenum. Gallbladder visualizes within normal time limits. IMPRESSION: Findings suggesting cystic duct and patent sphincter of Oddi, although motion degradatio n somewhat limits evaluation. No delay in visualization of the gallbladder, biliary tree, or duodenum .
[2023-03-09] MEDS: PIPER TAZO 3.375 GM in NA CHLORIDE 0.9% 100 ML IV SCH (18:17)
[2023-03-09 19:07] LABS: Specific Gravity 1.006 (1.005-1.030); Urine Bacteria <20 /HPF (<20); Urine Bilirubin NEGATIVE (Negative); Urine Blood Negative (Negative); Urine Clarity Clear (Clear); Urine Color Colorless (Yellow); Urine Glucose NEGATIVE (Negative); Urine Protein NEGATIVE (Negative); Urine RBC <5 /HPF (None Seen); Urine Urobilinogen Normal (Normal); Urine pH 6.5 (5.0-7.0)
--- NOTE | 2023-03-09 19:14 | CON ---
Date of Consultation: 03/09/2023 Brief History Of Present Illness: The patient is a 38-year-old female with past medical history of d epression, anxiety disorder, nicotine dependence, polysubstance abuse, who presents with complaints o f generalized abdominal pain, onset earlier in the day, 8/10 in severity, described as sharp in quali ty, predominantly in the left lower quadrant. She did have some nausea, but no vomiting. She has norris d multiple episodes in the past for multiple years. She cannot locate any particular food triggers, no postprandial symptoms. She has had multiple similar episodes before in the past. She states she has global abdominal pain; however, she is lethargic during my examination and is a very poor histori an, requires frequent awakening and redirection to complete the historical information. Past Medical History: Significant for anxiety disorder, depression, drug dependence, and nicotine de pendence. Medications: None. Allergies: NO KNOWN DRUG ALLERGIES. Family History: Noncontributory. Social History: She admits to smoking every day. She admits to using marijuana recreationally and a dmits to methamphetamine usage frequently. She drinks alcohol recreationally as well. She is [place] [employer] unemployed. Review of Systems: Ten-point review of systems other than HPI, she denies. Physical Examination: Vital Signs: At the time of my examination include a blood pressure of 117/53, pulse 65, respiratory rate 18, temperature 97.0, she has 100% saturation on room air. General: She is awake, lethargic, arousable, conversive, but a poor historian. HEENT: She is otherwise normocephalic. Her sclerae are anicteric. Her mucous membranes are moist. Oropharynx is clear. Her dentition is poor. Neck: Supple without JVD. Chest: Expansion and excursion. Cardiovascular: Regular rate and rhythm. Pulmonary: Clear to auscultation bilaterally. Abdomen: Soft with global tenderness to palpation. She has tenderness in the left lower quadrant an d the left upper quadrant, more sensitive in left lower quadrant and right upper quadrant. There is negative Frey sign. No rebound. No guarding. No focal peritonitis. Extremities: No clubbing, cyanosis, or edema. She has multiple what appears to be injection abbasi o n her bilateral upper extremities, which appear to be needle track abbasi. Laboratory Data: Revealed a white blood cell count of 13.1, hemoglobin 10.1, hematocrit of 35.2, nichole telet count is 556, neutrophils are 66%. Her sodium is 138, potassium 3.8, chloride 109, carbon diox angelic 25, BUN 14, creatinine is 0.89, glucose is 94, lactic acid 1.9, calcium 8.2, phosphorus is 3.7, m agnesium 2.0, total bilirubin 0.2, AST 77, ALT 55, alkaline phosphatase 77, lipase 32. Urinalysis sh owed 250 leukocyte esterase, red blood cells were evident, white blood cells were evident 10-26, red blood cells 11-20. test was negative. Protein was 1+. Her hepatitis panel, hep A was non reactive, B surface antigen nonreactive, B core IgM nonreactive. Hep C was negative. She had a toxi cology screen, which was positive for opioids, amphetamines, and THC. She had imaging performed, [facility] included an abdomen and pelvis CT on 03/08, officially read as cholelithiasis, gallbladder wall th ickening, may indicate cholecystitis. The stone may be impacted on gallbladder neck, mild intrahepat ic dilatation. She had an MRCP, which was officially read as cholelithiasis with acute cholecystitis . The intrahepatic and extrahepatic biliary tree is normal in caliber. No filling defects are visual ized in the common bile duct. Pancreatic duct is normal in caliber. Assessment And Plan: This is a 38-year-old female, who comes in with signs and symptoms of possible cholecystitis, although her abdominal exam is somewhat confusing as above. 1.IV fluid hydration. 2.Antibiotic coverage. 3.Serial abdominal exams. 4.HIDA scan. 5.If HIDA scan is definitively positive, we will proceed with cholecystectomy. If negative or equiv ocal or her symptoms continued to worsen consistent with biliary colic, I have recommended laparoscop ic cholecystectomy with ICG (Indocyanine green angiography). I have explained risks, benefits, and a lternatives of this procedure including, but not limited to bleeding, infection, damage to surroundin g tissues, need for further operation and procedures, injury to bile ducts and intestines, blood clot s, strokes, heart attacks, troubles related to perioperative anesthesia, and perioperative complicati ons unforeseen which could be life-threatening and serious. The patient agrees to proceed as indicat ed. Thank you for this interesting consult. NADEEN/ISAAC Voice ID: [id number] Report ID: [id number]
[2023-03-09] MEDS: MORPHINE 4 MG/ML SYR IV PRN (19:43)
[2023-03-10] MEDS: MORPHINE 4 MG/ML SYR IV PRN ×3 (00:56→11:17)
[2023-03-10] MEDS: PIPER TAZO 3.375 GM in NA CHLORIDE 0.9% 100 ML IV SCH ×3 (00:57→17:42)
[2023-03-10 03:39] LABS: Absolute Lymphocytes (CBC) 2.4 K/uL (0.7-4.9); Lymphocytes % 22.8 % (15.3-44.8); MPV 8.3 fL (7.6-11.3); RBC Red Blood Cell Count 3.61 M/uL (3.86-4.86)
[2023-03-10 03:58] LABS: Albumin 2.7 g/dL (3.4-5.0); Bilirubin Total 0.1 mg/dL (0.2-1.0); Magnesium 1.9 mg/dL (1.6-2.4); Protein, Total 5.9 g/dL (6.4-8.2)
[2023-03-10] MEDS: NA CHLORIDE 0.9% 1,000 ML IV SCH ×2 (06:14→23:17)
--- NOTE | 2023-03-10 07:08 | P.PN ---
Date of Service: 03/10/23 Subjective: doing okay today, sleepy right-sided abdominal pain ~same; tolerable with medicine no new / worsening problems afebrile ROS: 10 point ROS as noted above, otherwise negative Physical Exam: GEN: Alert, oriented, NAD HEENT: Normal conjunctiva, sclera anicteric CV: Regular rate and rhythm, no edema Pulm: Nonlabored respirations on room air ABD: Soft, right-sided abdominal tenderness to deep palpation, no left sided tenderness Neuro: Normal speech, normal affect vitals reviewed Problem List: Acute cholecystitis with cholelithiasis UTI, suspected. ruled out Microcytic anemia, h/o iron deficiency Anxiety disorder\depression Nicotine Dependence Illicit Drug use Acute cholecystitis with cholelithiasis CT imaging indicates 2 cm stone within the gallbladder neck. MRCP indicates acute cholecystitis with cholelithiasis. MRCP also confirmed 2 cm stone impacted within the gallbladder neck. General surgery and GI consulted Dr. Garcia recommended HIDA HIDA: Findings suggesting cystic duct and patent sphincter of Oddi, although motion degradation somewhat limits evaluation. No delay in visualization of the gallbladder, biliary tree, or duodenum patient's exam, imaging, and self-report do not correlate. Patient denies having right upper quadrant pain at home, new left lower quadrant pain. she is tender in the right abdomen/right upper quadrant, without tenderness left side NPO for tentative cholecystectomy today (03/10) Continue Zosyn (03/08-) PRN pain meds IVF kidney function back to normal UTI, suspected. ruled out Urine cultures: mixed yasmine Blood cultures: CONS growing in 1/4 bottles; likely skin contamination, no skin lesions Continue Zosyn (03/08-) afebrile, no leukocytosis Microcytic anemia. slight drop, no active bleed reports h/o iron deficiency with Anxiety disorder\depression. Continue home medication. Nicotine Dependence. Patient counseled on tobacco cessation. Refuses nicotine patch. Illicit Drug use. UDS positive for amphetamines, THC and opiates. Patient counseled on drug cessation. Code: Full Dispo: Home, ~2 days
[2023-03-10] MEDS ORDERED: BUPIVACAINE 0.25% PF 30 ML VIAL ONE (14:27)
[2023-03-10] MEDS ORDERED: Ringers Lactate 1,000 ML IV ONE (14:36)
[2023-03-10] MEDS ORDERED: FENTANYL CITR 100 MCG/2 ML ONE (14:47)
[2023-03-10] MEDS ORDERED: propofoL 200 MG/20 ML VIAL IV ONE (14:47)
[2023-03-10] MEDS ORDERED: LIDOCAINE 2% MPF 5 ML VIAL ONE ×2 (14:47→14:48)
[2023-03-10] MEDS ORDERED: MIDAZOLAM HCL 2 MG/2 ML INJ ONE (14:47)
[2023-03-10] MEDS ORDERED: ROCURONIUM 50 MG/5 ML VIAL IV ONE (14:48)
[2023-03-10] MEDS ORDERED: ONDANSETRON 4 MG/2 ML VIAL ONE ×2 (14:48→17:18)
[2023-03-10] MEDS ORDERED: dexAMETHasone 4 MG/ML VIAL ONE (14:57)
[2023-03-10] MEDS ORDERED: EPHEDRINE SULF 50 MG/ML VIAL ONE (16:01)
--- NOTE | 2023-03-10 16:51 | P.OP ---
Preoperative diagnosis: Cholecystitis with Cholelithiasis Postoperative diagnosis: Cholecystitis with Cholelithiasis Primary procedure: Laparoscopic Cholecystectomy with ICG Cholangiography Anesthesia: GETA + Local Estimated blood loss: < 10cc Specimen: Gallbladder Findings: Cholecystitis with cholelithasis Complications: None Transferred to: Recovery Room Condition: Good
[2023-03-10] MEDS ORDERED: NEOSTIGMINE 1 MG/ML -10 ML VIAL ONE (16:55)
[2023-03-10] MEDS ORDERED: GLYCOPYRROLATE 0.2 MG/ML SYR ONE (16:55)
[2023-03-10] MEDS: HYDROMORPHONE HCL 1 MG/ML INJ ONE ×4 (17:10→17:25)
[2023-03-10] MEDS: HYDROCODONE/APAP 5/325 MG TAB PO PRN (18:52)
--- NOTE | 2023-03-10 21:08 | P.PN ---
Subjective Date of Service: 03/10/23 Chief Complaint: EDILSON/RUQ pain, cholecystitis, cholelithiasis Subjective: New changes (S/p lap linh today. Feels better but drowsy on pain medications.) Review of Systems 10-point ROS is otherwise unremarkable General: Weakness, Malaise Gastrointestinal: Abdominal Pain Physical Examination - Vital Signs Temperature: 98.2 F Blood Pressure: 118/83 Pulse: 55 Respirations: 17 Pulse Ox (%): 99 - Physical Exam General: Alert, In no apparent distress, Cooperative HEENT: Atraumatic, Normocephalic, PERRLA, EOMI Neck: Supple Respiratory: Normal air movement Cardiovascular: Normal pulses Gastrointestinal: No rebound, Tenderness (post-op pain) Neurological: Normal speech, Normal strength at 5/5 x4 extr - Studies Microbiology Data (last 24 hrs): 03/08/23 15:35 Clean Catch Urine Douglas Count - Final BETWEEN 10,000 & 100,000 CFU/ML 03/08/23 15:35 Clean Catch Urine - Final MIXED CORWIN. 03/08/23 17:11 Blood - Blood Blood Culture Gram Stain - Final 03/08/23 17:11 Blood - Blood Anaerobic Blood Culture - Final 03/08/23 17:05 Blood - Blood Anaerobic Blood Culture - Final Assessment And Plan - Current Problems (Diagnosis) (1) Epigastric abdominal pain Current Visit: Yes Status: Acute (2) RUQ pain Current Visit: Yes Status: Acute (3) Cholecystitis Current Visit: Yes Status: Acute (4) Choledocholithiasis Current Visit: Yes Status: Acute (5) Abnormal CT of the abdomen Current Visit: Yes Status: Acute - Plan REC: 1) diet as per surgery 2) will sign off. Call if needed Physician Review: Patient Assessed, Agree with Above Assessment and Plan
[2023-03-11] MEDS: PIPER TAZO 3.375 GM in NA CHLORIDE 0.9% 100 ML IV SCH ×2 (00:06→08:07)
[2023-03-11] MEDS: HYDROCODONE/APAP 5/325 MG TAB PO PRN ×3 (00:51→17:42)
--- NOTE | 2023-03-11 01:03 | OP ---
Date of Procedure: 03/08/2023 Surgeon: Raymond Garcia MD, Preoperative Diagnosis: Cholecystitis with cholelithiasis. Postoperative Diagnosis: Cholecystitis with cholelithiasis. Procedure Performed: Laparoscopic cholecystectomy with indocyanine green cholangiography. Anesthesia: General endotracheal plus local with 0.25% Marcaine. Estimated Blood Loss: 10 cc. Specimens: Gallbladder. Findings: Cholecystitis with cholelithiasis. Complications: None. The patient was transferred to recovery room in good condition. Procedure In Detail: After informed consent was obtained, the patient was brought to the operating r oom and prepped and draped in the usual sterile fashion after adequate anesthesia was achieved. The supraumbilical area was anesthetized with 0.25% Marcaine and sharply incised and a 5 mm 0-degree opti shubham trocar was introduced in the abdomen without evidence of complication. Insufflation was obtained to 15 mmHg at this time. There was no injury to vital structures upon entering the abdomen. Two ad ditional trocars were placed, 1 in the epigastrium and 1 in the right upper quadrant, both of these w ere similarly anesthetized and sharply incised. A 5 mm trocar was placed under direct visualization without evidence of complication. The umbilical trocar was then upsized to a 12 mm under direct visu alization without evidence of complication. The patient was positioned head up right-side up positio n. Ratcheted grasper was used to grasp the patient's gallbladder towards the patient's right shoulde r and significant adhesions were appreciated between the duodenum and the gallbladder anterior surfac e. This was taken down using a combination of blunt dissection and electrocautery, protecting the du odenum throughout. At this point, I dissected down to the Tricia's pouch of the gallbladder where 2 structures were identified as both the cystic duct and cystic artery. Critical view of safety was obtained at this point after skeletonizing the structures. Indocyanine green degree cholangiography was performed at this point showing the confluence of the cystic duct and common duct junction withou t any evidence of involvement of the common duct. At this point, I clipped the proximal side of the both the cystic duct and cystic artery with double titanium clips singly on the distal side of both c ystic duct and cystic artery. These structures were then ligated using Endo Jimena. The gallbladder was removed from the hepatic fossa. Hemostatic was required on the gallbladder fossa. No spillage of bile was appreciated throughout the procedure. The gallbladder was then placed in an EndoCatch ba g, removed from the umbilical trocar site, and sent off for pathologic examination. The abdomen was re-insufflated at this point, irrigated copiously. There was no additional significant bleeding. Mi nimal electrocautery was required at this point and hemostasis was achieved at this point. The clips were found to be in good anatomic position. I irrigated the area once again, suctioned out complete ly dry. No bleeding was appreciated at this point. I then proceeded to close the 12 mm trocar site, which she had previously had surgery through this area apparently as the fascia was quite thin and f riable. I used multiple #1 Vicryl sutures to close this in an interrupted fashion with good approxim ation of the tissues. Pneumoperitoneum was maintained. After the closure was complete, I then decom pressed the abdomen under direct visualization without evidence of complication. Remaining trocars w ere removed. All skin incisions were copiously irrigated and closed with interrupted fermin and jenny rile dressing was placed over top. The patient tolerated the procedure well without evidence of comp lication and transferred to PACU in good condition. All counts were correct at the end of the case. NADEEN/ISAAC Voice ID: [id number] Report ID: [id number]
[2023-03-11 03:20] LABS: Absolute Lymphocytes (CBC) 0.9 K/uL (0.7-4.9); Hematocrit 34.6 % (36.0-45.0); Lymphocytes % 4.8 % (15.3-44.8); MCV 83.7 fL (80-100); MPV 7.7 fL (7.6-11.3); RBC Red Blood Cell Count 4.13 M/uL (3.86-4.86)
[2023-03-11 03:36] LABS: Albumin 3.5 g/dL (3.4-5.0); Bilirubin Total 0.4 mg/dL (0.2-1.0); Protein, Total 7.6 g/dL (6.4-8.2)
--- NOTE | 2023-03-11 07:05 | P.PN ---
Date of Service: 03/11/23 Subjective: doing okay, ambulating around the floor tolerating diet; no nausea/vomiting/diarrhea abdominal pain is tolerable with current pain medication no new / worsening problems ROS: 10 point ROS as noted above, otherwise negative Physical Exam: GEN: Alert, oriented, NAD HEENT: Normal conjunctiva, sclera anicteric CV: Regular rate and rhythm, no edema Pulm: Nonlabored respirations on room air ABD: Soft, right-sided abdominal tenderness to deep palpation, no left sided tenderness Neuro: Normal speech, normal affect vitals reviewed Problem List: Acute cholecystitis with cholelithiasis, now s/p lap linh with ICG Ch olangiography (03/10) UTI, ruled out Microcytic anemia, h/o iron deficiency Anxiety disorder\depression Nicotine Dependence Illicit Drug use Acute cholecystitis with cholelithiasis, now s/p lap linh with ICG Cholangiography (03/10) s/p lap linh with ICG Cholangiography (03/10) dc zosyn PRN pain meds advance diet today leukocytosis, likely reactive from surgery; afebrile component of hemoconcentration UTI, ruled out Urine cultures: mixed yasmine Blood cultures: CONS growing in 1/4 bottles; felt to be a skin contamination afebrile Microcytic anemia. no active bleed reports h/o iron deficiency with Anxiety disorder\depression. Continue home medication. Nicotine Dependence. Patient counseled on tobacco cessation. Refuses nicotine patch. Illicit Drug use. UDS positive for amphetamines, THC and opiates. Patient counseled on drug cessation. Code: Full Dispo: Home, ~1 day LFTs and WBC increased, repeat testing tomorrow morning, advance diet, home if continues to improve tomorrow morning
[2023-03-11] MEDS: NICOTINE 21 MG/PAT TD SCH (10:33)
[2023-03-11] MEDS: NA CHLORIDE 0.9% 1,000 ML IV SCH (14:10)
[2023-03-12 03:28] LABS: Absolute Lymphocytes (CBC) 3.2 K/uL (0.7-4.9); Hematocrit 30.5 % (36.0-45.0); Lymphocytes % 24.6 % (15.3-44.8); MCV 82.7 fL (80-100); MPV 7.9 fL (7.6-11.3); RBC Red Blood Cell Count 3.68 M/uL (3.86-4.86)
[2023-03-12 03:43] LABS: Albumin 2.8 g/dL (3.4-5.0); Bilirubin Total 0.2 mg/dL (0.2-1.0); Magnesium 1.7 mg/dL (1.6-2.4); Potassium 3.2 mEq/L (3.5-5.1); Protein, Total 6.1 g/dL (6.4-8.2)
[2023-03-12] MEDS ORDERED: MAGNESIUM SULFATE 1 gm IVPB 1 GM/100 ML BAG IV ONE (06:00)
[2023-03-12] MEDS: HYDROCODONE/APAP 5/325 MG TAB PO PRN (06:49)
--- NOTE | 2023-03-12 06:55 | P.DS ---
Admission Date: 03/08/23 Discharge Date: 03/12/23 Disposition: ROUTINE DISCHARGE Reason for Admission: EDILSON/RUQ pain, cholecystitis, cholelithiasis Consultations: General Surgery - Dr. Garcia GI - Dr. Kirby Brief History of Present Illness: 38 yo F, PMH: depression, anxiety disorder, nicotine dependence, polysubstance abuse Patient presents with complaint of generalized abdominal pain onset this morning. Patient rated pain as 8/10 in severity and described as sharp in quality. Patient reported associated signs and symptoms of nausea. Patient denies any other signs and symptoms. Symptoms are aggravated or relieved by no thing. Patient decided to present to the hospital due to worsening symptoms. Hospital Course: Problem List: Acute cholecystitis with cholelithiasis, now s/p lap linh with ICG Cholangiography (03/10) Microcytic anemia, h/o iron deficiency Anxiety disorder\depression Nicotine Dependence Illicit Drug use Patient presented with abdominal pain. She was found to have acute cholecystitis with cholelithiasis. General surgery and GI were consulted in the ED. She underwent further evaluation via HIDA scan and MRCP, which revealed no suspicion for gallstone within the bile duct/no biliary obstruction. Patient underwent laparoscopic cholecystectomy by Dr. Garcia on 03/10 without complications. / blood culture bottles grew CONS, which is considered a contaminated specimen in this situation, and not true bacteria. She improved post-operatively and diet was advanced and well tolerated. She was noted to have an increase in her leukocytosis as well as her LFTs postoperatively. This was felt to be secondary to the surgery/local inflammation/manipulation. Her antibiotics were discontinued postoperatively, she continued to improve, her blood work significantly improved, she remained afebrile. She was deemed stable for discharge home. Follow-up PCP within 3 to 5 days General surgery, Dr. Garcia in ~1-2 weeks. Avoid heavy lifting /strenuous activity. No lifting > 10 lbs for 4-6 weeks. Patient has a large dog at home, recommended to have someone else walk the dog to avoid jerking motions /unnecessary increased abdominal pressure. Medications on discharge: [place] Call Dr. Garcia's office if pain increases / requiring additional pain medication. Physical Exam: GEN: Alert, oriented, NAD HEENT: Normal conjunctiva, sclera anicteric CV: Regular rate and rhythm, no edema Pulm: Nonlabored respirations on room air ABD: Soft, mild tenderness near incisions, non-distended Neuro: Normal speech, normal affect Vital Signs/Physical Exam: Temp Pulse Resp BP Pulse Ox 97.8 F 79 18 105/60 98 03/12/23 04:00 03/12/23 04:00 03/12/23 06:49 03/12/23 04:00 03/12/23 06:49 Laboratory Data at Discharge: WBC 12.90 thou/uL (4.3-10.9) H 03/12/23 02:57 Hgb 10.0 g/dL (12.0-15.0) L D 03/12/23 02:57 Hct 30.5 % (36.0-45.0) L 03/12/23 02:57 Plt Count 444 thou/uL (152-406) H 03/12/23 02:57 Sodium 140 mEq/L (136-145) 03/12/23 02:57 Potassium 3.2 mEq/L (3.5-5.1) L D 03/12/23 02:57 BUN 11 mg/dL (7-18) 03/12/23 02:57 Creatinine 0.84 mg/dL (0.55-1.02) 03/12/23 02:57 Glucose 112 mg/dL (74-106) H 03/12/23 02:57 Phosphorus 3.7 mg/dL (2.5-4.9) 03/08/23 14:05 Magnesium 1.7 mg/dL (1.6-2.4) 03/12/23 02:57 Total Bilirubin 0.2 mg/dL (0.2-1.0) 03/12/23 02:57 AST 50 U/L (15-37) H 03/12/23 02:57 ALT 87 U/L (13-56) H 03/12/23 02:57 Alkaline Phosphatase 100 U/L (45-117) 03/12/23 02:57 Lipase 28 U/L (13-75) 03/09/23 08:15 Home Medications: hydrOXYzine HCL [Atarax] 1 tab PO BID PRN 03/09/23 Hydrocodone 5/APAP 325 [[place] 5/325] 1 tab PO Q8H PRN #10 tab 03/12/23 New Medications: Hydrocodone 5/APAP 325 [[place] 5/325] 1 tab PO Q8H PRN #10 tab PRN Reason: Pain Physician Discharge Instructions: Patient presented with abdominal pain. She was found to have acute cholecystitis with cholelithiasis. General surgery and GI were consulted in the ED. She underwent further evaluation via HIDA scan and MRCP, which revealed no suspicion for gallstone within the bile duct/no biliary obstruction. Patient underwent laparoscopic cholecystectomy by Dr. Garcia on 03/10 without complications. 09/22 blood culture bottles grew CONS, which is considered a contaminated specimen in this situation, and not true bacteria. She improved post-operatively and diet was advanced and well tolerated. She was noted to have an increase in her leukocytosis as well as her LFTs postoperatively. This was felt to be secondary to the surgery/local inflammation/manipulation. Her antibiotics were discontinued postoperatively, she continued to improve, her blood work significantly improved, she remained afebrile. She was deemed stable for discharge home. Follow-up PCP within 3 to 5 days General surgery, Dr. Garcia in ~1-2 weeks. Avoid heavy lifting /strenuous activity. No lifting > 10 lbs for 4-6 weeks. Patient has a large dog at home, recommended to have someone else walk the dog to avoid jerking motions /unnecessary increased abdominal pressure. Medications on discharge: [place] Call Dr. Garcia's office if pain increases / requiring additional pain medication. Diet: [place] Activity: No lifting more than 10 lbs Followup: Raymond Garcia MD [ACTIVE - CAN ADMIT] - NONE,NONE [Primary Care Provider] - Time spent managing pt's care (in minutes): 45
[2023-03-12] MEDS ORDERED: POTASSIUM 25 MEQ EFFERV TAB PO ONE (07:00)
[2023-03-12 08:50] VITALS: O2SAT 99
[2023-03-12] MEDS: NICOTINE 21 MG/PAT TD SCH (10:28)
[2023-03-12 10:33] VITALS: BP 114/71; TEMP 97.7
== END 2023-03-12 11:10 | disposition home or self-care (01) | DRG 419 ==
LOC: ER 12:35 → ERHOLD 17:22 → 2ND 19:09
PROVIDERS: ADMIT Hospitalist; ATTEND Hospitalist
PROC: 0FT44ZZ Resection of Gallbladder, Percutaneous Endoscopic Approach (ICD-10-PCS; principal; 2023-03-08)
PROC: BF52200 Other Imaging of Gallbladder using Fluorescing Agent, Indocyanine Green Dye, Intraoperative (ICD-10-PCS; 2023-03-08)
DX: K80.00 Calculus of gallbladder with acute cholecystitis without obstruction (principal); F41.9 Anxiety disorder, unspecified; F32.A Depression, unspecified; N18.2 Chronic kidney disease, stage 2 (mild); D50.9 Iron deficiency anemia, unspecified; F17.210 Nicotine dependence, cigarettes, uncomplicated; Z56.0 Unemployment, unspecified; Z88.1 Allergy status to other antibiotic agents; Z98.51 Tubal ligation status; Z71.51 Drug abuse counseling and surveillance of drug abuser; Z28.310 Unvaccinated for COVID-19; Z79.899 Other long term (current) drug therapy
CPT/HCPCS: 36415; 74177; 74181; 78226; 80048; 80053; 80074; 80307; 81001; 81025; 83605; 83690; 83735; 84100; 85025; 87040; 87086; 87088; 87205; 88304; 96361; 96365; 96375; 99285; A9537; J1100; J1170; J2001; J2250; J2405; J2543; J2704; J2710; J3010; J3475; J3480; J7030; J7120; Q9967

== ENCOUNTER 2023-03-28 17:41 | Emergency (ER) | payer SELFPAY ==
--- OUTSIDE RECORDS SUMMARY | 2023-03-28 17:44 | XMS REPORT | Continuity of Care Document ---
:1985 Author Organization [facility] t Address [address] [place] [address] Care Team Providers Name Role Phone No, Pcp [facility] Primary Care Physician Unavailable Doctor Unassigned, [place] Attending Clinician Unavailable SAMANTHA GILLESPIE Attending Clinician [...] [facility]00: Medical reaction 00 Center s Clindamy Propensi Active Hives 2015-09 Univer s diya ty to 1-13 ity of adverse 00:00: [place] reaction 00 Medical s Branch Social History Social Habit Start Date Stop Date Quantity Comments Source History of tobacco Smokes tobacco [facility] Tobacco use and 2019-04-04 2019-04-04 User of MAO [place] exposure 00:00:00 00:00:00 smokeless [facility] tobacco Cigarettes smoked 2018-12-08 2018-12-08 Univers ity of current (pack per 00:00:00 00:00:00 [facility] ) - Reported Branch Alcohol intake 2018-12-08 2018-12-08 [facility] 00:00:00 00:00:00 [facility] Sex Assigned At [birth year] MAO [place] 00:00:00 00:00:00 [facility] Smoking Status Start Date Stop Date Source Current every day smoker 2018-12-08 00:00:00 Uni versity of [facility] Medications Ordered Filled Start Stop Current Ordering Indication Dosage Frequency Signature Comments Components Source Medication Medication Date Date Medication? Clinician (SIG) Name Name chlorhexidi Yes [id number] 15mL Swish and Univers ne 0.12 % 3-22 spit out ity of mouthwash 00:00: 15 mL 2 [place] 00 (two) Medical times Branch daily. HYDROcodone Yes [id number] 1{tbl} Take 1 Univers -acetaminop 3-22 tablet by ity of hen (NORCO) 00:00: mouth [place] 5-325 mg 00 every 6 Medical tablet (six) Branch hours as needed for Pain (scale 4-6). ibuprofen Yes [id number] 600mg Take 1 U nivers 600 mg 3-22 tablet by ity of tablet 00:00: mouth [place] 00 every 6 Medical (six) Branch hours as needed for Pain (scale 1-3) or Pain (scale 4-6). traMADOL 2015-09 Yes 50mg Take 1 Univers (ULTRAM) 50 2-02 tablet by ity of mg tablet 00:00: mouth [place] 00 every 6 Medical (six) Branch hours as needed for Pain (scale 4-6). Ervin Almazan PA-C / Denzel Reddy MD LIYAH# [id number] DPS# [id number] x Lic.# [id number] NPI# [id number] pentazocine 2015-09 Yes 1{tbl} Take 1 Un mckenzie -naloxone 1-13 tablet by ity o f (DEVAN HENSON) 00:00: mouth [place] 50-0.5 mg 00 every 4 Medical tablet (four) Branch hours as needed for Pain for up to 20 doses. Procedures Procedure Date / Time Performing Clinician Source Performed AUTHORIZATION FOR 2019-11-21 06:01:00 Doctor Unassigned, No [facility] RELEASE OF PHI Name Medical Branch Encounters Start End Encounter Admission Attending Care Care Encounter Source Date/Time Date/Time Type Type Clinicians Facility Department ID 2023-03-02 2023-03-02 Outpatient [facility] [id number] 16:57:00 16:57:00 [id number] 2019-11-21 2019-11-21 Orders Doctor CHERELLE [id number] Univers 00:00:00 00:00:00 Only Unassigned, TIM [id number] ity of [place] [facility] [id number] [place] as [phone] [facility] 009 Branch Results Test Description Test Time Test Comments Results Result Comments Source PAP TEST, THINPREP, IMAGED 2023-01-20 23:50:57 Test Item Value Reference Range Interpretation Comme nts SOURCE: (test code = Cervical/Endocervical 8001) SLIDES: (test code = 1 8011) LMP: (test code = 01/12/2023 8021) SPECIMEN ADEQUACY: (NOTE) Branden catalan for (test code = 67806) evaluati on. Endocervical cells/transform ation zone component prese nt. INTERPRETATION: NILM/NO EPITH. ABNORMALITY;SEE (test code = 56465) BELOW -------- NEGATIVE FOR INTRAEPITHE LIAL LESION OR MALIGNANCY ( NILM) -- OTHER COMMENTS: (NOTE) Shift in humberto ra suggestive of (test code = 8081) bacterial vaginosis. WOOL DYER: ROSA Johnson(ASCP) (test code = 8101) LOCATION: (test code (NOTE) Specime ns processed and = 80494) [facility], [address] [place] [id number], Phone: ( [phone], CLIA: [id number] CPT: (test code = (NOTE) 33965 UNLE SS OTHERWISE 8140) INDICATED, COMP UTER [...] as applicable. HPV HIGH RISK WITH GENOTYPE, [id number] 20:00:23 Test Item Value Reference Range Interpretation Comments HPV HIGH RISK INTERP NEGATIVE NEGATIVE (test code = 85435) HPV 16 (test code = NEGATIVE 44786) HPV 18 (test code = NEGATIVE 56291) HPV, HR, OTHER NEGATIVE Testing meth odology is GENOTYPES (test code real-ti me PCR utilizing = 05583) hydrolysis prob es with the [employer] 4800 system. The tata t individually de tects genotypes 16 an d 18, as well as the oth er 12 high risk types (31,33,35,39,45 ,51,52,56 ,58,59,66,68). The expected result is negative. A neg ative result does not rule out the presence of HPV not included in the genotype set, a low leve l of infection or sp ecimen sampling error. [facility] has important p athology staff changes e ffective 11/17/2022. New pathology staff will provide uninter rupted, excellent patie nt care and clinical consultation. S ee URL: [email or web address]. UNLESS OTHERWISE INDICATED, ALL [facility]FOR[facility], [facility]. [address] [place] [address] LABORATORY DIRE CTOR: CIARA BUCHANAN M.D. DIONIA NUMBER [id number] [facility] [place] [place] [id number] CT/NG, NAAT, [id number] 11:43:27 Test Item Value Reference Range Interpretation Comments CHLAMYDIA, NAAT, NEGATIVE NEGATIVE A negative result does THINPREP (test code not excl ude low level = 78030) infection, specimensamplin g error, or collection erro r. Testing is performed wi th the [employer] 680 systems usingre al-time Polymerase Sagar n Reaction (PCR) method. GONORRHEA, NAAT, NEGATIVE NEGATIVE A negative result does THINPREP (test code not excl ude low level = 16378) infection, specimensamplin g error, or collection erro r. Testing is performed wi th the [employer] 680 systems usingre al-time Polymerase Sagar n Reaction (PCR) method. [place], HOME HEALTH LVN IN OR/30 MINUTE [id number] 14:01:00Reason for exam:- >Left open tongue type calcaneus fracturePROCEDURE PERFORMED IN O.R. - PLEASE REFER TO THE INTRAOPERATIVE REPORT. BASIC METABOLIC [id number] 10:46:00 Test Item Value Reference Range Interpretation [...] PATIEN TS. CBC W/PLT COUNT & AUTO [id number] 10:26:00 Test Item Value Reference Range Interpretation [...] (BEAKER) (test code = 2801) COMPREHENSIVE METABOLIC [id number] 07:45:00 Test Item Value Reference Range Interpretation [...] APPLICABLE FOR DIALYSIS PATIEN TS. BASIC METABOLIC [id number] 07:45:00 Test Item Value Reference Range Interpretation [...] PATIEN TS. CBC W/PLT COUNT & AUTO [id number] 05:27:00 Test Item Value Reference Range Interpretation [...] = 2801) CBC W/PLT COUNT & AUTO [id number] 14:02:00 Test Item Value Reference Range Interpretation [...] PERCENT (BEAKER) (test code = 2801) SCREEN, [id number] 13:10:00 Test Item Value Reference Range Interpretation Comments TEST URINE (BEAKER) (test Negative code = 583) [id number] 12:20:00 Test Item Value Reference Range Interpretation [...] mechanical heart valves.RAD, CHEST, 1 VIEW, NON [id number] 11:38:00Reason for exam:->pre-opShould this be performed at the bedside?->YesFINAL REPORT Chest, portable AP view History: Calcaneus fracture, preop evaluation Comparison: No comparisons available for review IMPRESSION: The cardiomediastinal silhouette and pulmonary vasculature are within normal limits. The lungs are clear without evidence of consolidationor effusion. There are no acute osseous abnormalities. Signed: Brendon Chang Verified Date/Time: 04/04/2019 11:38:54 Reading Location: [facility] Reading Room RAD, HEEL, 2 VIEWS, [id number] 11:12:00 Reason for exam:->fx assessmentShould this be [...] Chang Verified Date/Time: 04/04/2019 11:12:04 [facility] Reading [facility]
--- NOTE | 2023-03-28 18:38 | EDPHYS ---
Physician Documentation [facility] Name: Doris Langley Age: 38 yrs Sex: Female : 1985 Arrival Date: 03/28/2023 Time: 17:41 Bed 9 Private MD: MILAD Physician Lawrence Stephens HPI: 03/28 18:30 This 38 yrs old Female presents to ER via Ambulatory with complaints of cayetano Staple Removal. 18:30 The patient has lm on the abdomen. Previous treatment: The patient was initially cayetano treated 14 day(s) ago. Sutures/lm progress: The patient has no c/o's. The wound is well-healing with no redness, swelling, discharge, or dehiscence reported. The patient has not experienced similar symptoms in the past. Historical: - Allergies: 18:10 Clindamycin; cm10 - PSHx: 18:10 section; tubaligation; cm10 - Immunization history:: Adult Immunizations unknown. - Social history:: Smoking status: Patient denies any tobacco usage or history of. ROS: 18:30 Constitutional: Negative for fever, chills, and weight loss, Eyes: Negative for injury, cayetano pain, redness, and discharge, ENT: Negative for injury, pain, and discharge, Neck: Negative for injury, pain, and swelling, Cardiovascular: Negative for chest pain, palpitations, and edema, Respiratory: Negative for shortness of breath, cough, wheezing, and pleuritic chest pain, Abdomen/GI: Negative for abdominal pain, nausea, vomiting, diarrhea, and constipation, Back: Negative for injury and pain, : Negative for injury, bleeding, discharge, and swelling, MS/Extremity: Negative for injury and deformity, Neuro: Negative for headache, weakness, numbness, tingling, and seizure, Psych: Negative for depression, anxiety, suicide ideation, homicidal ideation, and hallucinations, Allergy/Immunology: Negative for hives, rash, and allergies, Endocrine: Negative for neck swelling, polydipsia, polyuria, polyphagia, and marked weight changes, Hematologic/Lymphatic: Negative for swollen nodes, abnormal bleeding, and unusual bruising. 18:30 Skin: Positive for healing well. Exam: 18:30 Constitutional: This is a well developed, well nourished patient who is awake, alert, cayetano and in no acute distress. Head/Face: Normocephalic, atraumatic. Eyes: Pupils equal round and reactive to light, extra-ocular motions intact. Lids and lashes normal. Conjunctiva and sclera are non-icteric and not injected. Cornea within normal limits. Periorbital areas with no swelling, redness, or edema. ENT: Nares patent. No nasal discharge, no septal abnormalities noted. Tympanic membranes are normal and external auditory canals are clear. Oropharynx with no redness, swelling, or masses, exudates, or evidence of obstruction, uvula midline. Mucous membranes moist. Neck: Trachea midline, no thyromegaly or masses palpated, and no cervical lymphadenopathy. Supple, full range of motion without nuchal rigidity, or vertebral point tenderness. No Meningismus. Chest/axilla: Normal chest wall appearance and motion. Nontender with no deformity. No lesions are appreciated. Cardiovascular: Regular rate and rhythm with a normal S1 and S2. No gallops, murmurs, or rubs. Normal PMI, no JVD. No pulse deficits. Respiratory: Lungs have equal breath sounds bilaterally, clear to auscultation and percussion. No rales, rhonchi or wheezes noted. No increased work of breathing, no retractions or nasal flaring. Back: No spinal tenderness. No costovertebral tenderness. Full range of motion. Skin: Warm, dry with normal turgor. Normal color with no rashes, no lesions, and no evidence of cellulitis. MS/ Extremity: Pulses equal, no cyanosis. Neurovascular intact. Full, normal range of motion. Neuro: Awake and alert, GCS 15, oriented to person, place, time, and situation. Cranial nerves II-XII grossly intact. Motor strength 5/5 in all extremities. Sensory grossly intact. Cerebellar exam normal. Normal gait. 18:30 Abdomen/GI: Inspection: abdomen appears normal, Bowel sounds: normal, in all quadrants, active, all quadrants. Vital Signs: 18:08 BP 127 / 79; Pulse 82; Resp 16; Temp 97.6(O); Pulse Ox 100% ; Weight 61.23 kg; Height 5 cm10 ft. 3 in. ; Pain 0/10; 18:08 Body Mass Index 23.91 (61.23 kg, 160.02 cm) cm10 18:08 Pain Scale: Adult cm10 MDM: 17:47 Patient medically screened. cayetano Administered Medications: No medications were administered Disposition Summary: 03/28/23 18:38 Discharge Ordered Location: Home cayetano Problem: new cayetano Symptoms: have improved cayetano Condition: Stable cayetano Diagnosis - Encounter for screening, unspecified - Staple removal , sp lap appendectomy cayetano Followup: cayetano - With: Private Physician - When: As needed - Reason: Recheck today's complaints, Continuance of care, Re-evaluation by your physician Discharge Instructions: - Discharge Summary Sheet cayetano - Sutures, Lm, or Adhesive Wound Closure cayetano - Suture Removal, Care After cayetano - Sutures, Lm, or Adhesive Wound Closure, [id number] [facility] Forms: - Medication Reconciliation Form cayetano - Thank You Letter cayetano - Antibiotic Education cayetano - Prescription Opioid Use cayetano - Patient Portal Instructions.htm [facility] Signatures: Lawrence Stephens MD MD cha Martinez, Clarissa RN RN cm10
--- NOTE | 2023-03-28 18:38 | ER ---
Nurse's Notes [facility] Name: Doris Langley Age: 38 yrs Sex: Female : 1985 Arrival Date: 03/28/2023 Time: 17:41 Bed 9 Private MD: Diagnosis: Encounter for screening, unspecified-Staple removal , sp lap appendectomy Presentation: 03/28 18:08 Chief complaint: Patient states: she is here to have her fermin removed from her cm10 appendectomy that was done 3 week ago. Coronavirus screen: Vaccine status: Patient reports being unvaccinated. Ebola Screen: No symptoms or risks identified at this time. Initial Sepsis Screen: Does the patient meet any 2 criteria? No. Patient's initial sepsis screen is negative. Does the patient have a suspected source of infection? No. Patient's initial sepsis screen is negative. Risk Assessment: Do you want to hurt yourself or someone else? Patient reports no desire to harm self or others. Onset of symptoms was March 28, 2023. 18:08 Method Of Arrival: Ambulatory cm10 18:08 Acuity: MAURI 5 cm10 Triage Assessment: 18:10 General: Appears in no apparent distress. comfortable, Behavior is calm, cooperative. cm10 Pain: Denies pain. Neuro: No deficits noted. Level of Consciousness is awake, alert, Oriented to person, place, time, situation. Respiratory: No deficits noted. Airway is patent Respiratory effort is even, unlabored, Respiratory pattern is regular, symmetrical. Derm: Pt has fermin to abdomen. Historical: - Allergies: 18:10 Clindamycin; cm10 - PSHx: 18:10 section; tubaligation; cm10 - Immunization history:: Adult Immunizations unknown. - Social history:: Smoking status: Patient denies any tobacco usage or history of. Screenin:11 [facility] ED Fall Risk Assessment (Adult) History of falling in the last 3 months, cm10 including since admission No falls in past 3 months (0 pts) Confusion or Disorientation No (0 pts) Intoxicated or Sedated No (0 pts) Impaired Gait No (0 pts) Mobility Assist Device Used No (0 pt) Altered Elimination No (0 pt) Score/Fall Risk Level 0 - 2 = Low Risk Oriented to surroundings, Maintained a safe environment, Hourly rounding (assess needs \T\ fall precautionary measures) done. Abuse screen: Denies threats or abuse. Denies injuries from another. Nutritional screening: No deficits noted. Tuberculosis screening: No symptoms or risk factors identified. Assessment: 18:11 Reassessment: See triage assessment. cm10 Vital Signs: 18:08 BP 127 / 79; Pulse 82; Resp 16; Temp 97.6(O); Pulse Ox 100% ; Weight 61.23 kg; Height 5 cm10 ft. 3 in. ; Pain 0/10; 18:08 Body Mass Index 23.91 (61.23 kg, 160.02 cm) cm10 18:08 Pain Scale: Adult cm10 ED Course: 17:44 Patient arrived in ED. mr 17:47 Lawrence Stephens MD is Attending Physician. [facility] 18:10 Triage completed. cm10 18:10 Arm band placed on Patient placed in an exam room, on a stretcher. cm10 18:12 Patient has correct armband on for positive identification. Bed in low position. Call cm10 light in reach. Provided Education on: NA. 18:12 No provider procedures requiring assistance completed. Patient did not have IV access cm10 during this emergency room visit. Administered Medications: No medications were administered Medication: 18:11 VIS not applicable for this client. cm10 Outcome: 18:38 Discharge ordered by . [facility] 18:50 Discharged to home ambulatory. cm10 18:50 Condition: good 18:50 Discharge instructions given to patient, Instructed on discharge instructions, follow up and referral plans. Demonstrated understanding of instructions, follow-up care. 18:51 Patient left the ED. cm10 Signatures: Lawrence Stephens MD MD cha Rivera, Mary mr Martinez, Clarissa, RN RN cm10
[2023-03-28 19:42] VITALS: BP 127/79; TEMP 97.6; O2SAT 100
== END 2023-03-28 18:51 | disposition home or self-care (01) ==
LOC: ER 17:41
DX: Z48.02 Encounter for removal of sutures (principal)
CPT/HCPCS: 99282